=== PATIENT | female | born 1970 | race Caucasian/White ===

== ENCOUNTER → 2016-10-16 | Outpatient (CLI) | payer BC ==
[~2016-10-16] MED LIST: ASPI81TA28 PO; GLIP10TA9 PO; LISI10TA PO; METF1TAB53 PO
[2016-10-16 16:42] LABS: BLOOD UREA NITROGEN 13 mg/dl (7-18); BUN/CREATININE RATIO 14.4 (10-20); CALCIUM 8.8 mg/dl (8.5-10.1); CARBON DIOXIDE 27 mmol/L (21-32); CHLORIDE 108 mmol/L (98-107); GLUCOSE 223 mg/dl (70-99); POTASSIUM 4.1 mmol/L (3.5-5.1); SODIUM 141 mmol/L (136-145)
[2016-10-17 05:37] LABS: ESTIMATED AVERAGE GLUCOSE 174 mg/dl; HA1C FLAG Normal (Normal)
== END | disposition home or self-care (01) ==
LOC: C.LABBFT 13:38
PROVIDERS: ATTEND Internal Medicine
DX: Z00.00 Encounter for general adult medical examination without abnormal findings (principal); I10 Essential (primary) hypertension; E11.9 Type 2 diabetes mellitus without complications

== ENCOUNTER → 2017-03-02 | Outpatient (CLI) | payer BC ==
[2017-03-02 12:44] LABS: ESTIMATED AVERAGE GLUCOSE 160 mg/dl; HA1C FLAG Normal (Normal)
== END | disposition home or self-care (01) ==
LOC: C.LABBFT 08:13
PROVIDERS: ATTEND Internal Medicine
DX: E11.9 Type 2 diabetes mellitus without complications (principal)

== ENCOUNTER 2017-04-02 16:37 | Emergency (ER) | payer BC ==
[~2017-04-02] VITALS: Ht 165.1 cm; Wt 142.8 kg
[2017-04-02 16:40] VITALS: TEMP 36.7; Ht 165.1 cm; Wt 142.8 kg
[2017-04-02] MEDS ORDERED: LISI10TA PO (16:59)
[2017-04-02] MEDS ORDERED: ASPI81TA28 PO (16:59)
[2017-04-02] MEDS ORDERED: GLIP10TA9 PO (16:59)
[2017-04-02] MEDS ORDERED: METF1TAB53 PO (16:59)
--- NOTE | 2017-04-02 17:45 | DIAGNOSTIC IMAGING REPORT ---
RIGHT SHOULDER 3 VIEWS HISTORY: Right shoulder pain. RIGHT WITH Y VIEW, FALL ON R SHOULDER Right COMPARISON: None. FINDINGS: There is no fracture or dislocation. Soft tissues are unremarkable. No radiopaque foreign bodies. The right clavicle is intact. IMPRESSION: No fractures. Electronically signed by: Brennan Eaton M.D. 04/02/2017 5:43 PM Dictated Date/Time: 04/02/2017 5:42 PM
--- NOTE | 2017-04-02 18:01 | EMERGENCY ROOM VISIT NOTE ---
ED Visit Note First contact with patient: 16:49 CHIEF COMPLAINT: Right shoulder injury yesterday HISTORY OF PRESENT ILLNESS: Patient is a [id number] 46-year-old white female who presents to the emergency department for evaluation of right shoulder pain after a fall tomorrow. She slipped on wet grass and landed directly on the right shoulder. She noted pain immediately in the anterior aspect of the right shoulder that is worse with any attempt at shoulder movement. The pain radiates down her arm. She rates her pain a 9/10. She tried ice and ibuprofen. She denies any numbness or tingling. No prior history of right shoulder issues or chronic disease. No surgeries. REVIEW OF SYSTEMS: Review of systems as per HPI. All other systems reviewed were negative. At least 6 systems reviewed. PMH: Electronic medical records are reviewed and summarized as above/below. See Problem List. SOCIAL HISTORY: Patient lives at home with her . She is not employed. Nonsmoker. PHYSICAL EXAM: Vital Signs: Reviewed nurse's notes. CONSTITUTIONAL: Patient is an obese 38-year-old white female who is awake and alert and in mild distress due to her shoulder discomfort. MUSCULOSKELETAL: Examination of the right shoulder does not demonstrate any outward signs of,, no ecchymosis, abrasions or obvious deformity. There is no pain over the body of the clavicle, she does have some discomfort over the acromioclavicular joint, no pain over the spinous scapula. She has some discomfort over the proximal biceps tendon and rotator cuff insertion as well. Passive internal and external rotation of the shoulder are full. She has discomfort with passive forward flexion and abduction. The elbow, forearm, wrist and hand are nontender. The right upper extremity is neurovascularly intact. EMERGENCY DEPARTMENT COURSE: X-rays of the right shoulder were obtained. An negative for acute fracture or bony abnormality. The patient was fitted with an arm sling. Differential diagnoses entertained included proximal humerus fracture, shoulder dislocation, clavicle fracture, AC separation, soft tissue injury including capsule, labral or rotator cuff tear, among others. Patient does have some discomfort over the acromioclavicular joint, and I suspect she may have an element of an AC separation. Soft tissue injury however cannot be excluded. The patient was encouraged to use [id number] medications for discomfort and use the arm sling, she can follow-up with orthopedics if her symptoms are not improving. She is discharged home in good condition. Medication reconciliation: I attest that I have personally reviewed the patient' s current medication list. Blood pressure screening: Patient was found to have a slightly elevated blood pressure due to circumstances. The patient does have a history of hypertension and is treated and followed for this. RIGHT SHOULDER 3 VIEWS HISTORY: Right shoulder pain. RIGHT WITH Y VIEW, FALL ON R SHOULDER Right COMPARISON: None. FINDINGS: There is no fracture or dislocation. Soft tissues are unremarkable. No radiopaque foreign bodies. The right clavicle is intact. IMPRESSION: No fractures. Problem List Medical Problems: (1) Diab Verna Wo Compl, Type Ii Or Unspec Type, Not Uncntrld Status: Chronic (2) Hypertension Nos Status: Chronic Current/Historical Medications Scheduled Aspirin (Aspirin Ec), 81 MG PO DAILY Glipizide (Glucotrol), 20 MG PO QAM Lisinopril (Prinivil), 10 MG PO DAILY Metformin Hcl (Glucophage Ext Rel), 1,000 MG PO BID Allergies Coded Allergies: No Known Allergies (Unverified , 11/27/12) Vital Signs Date Time Temp Pulse Resp B/P (MAP) Pulse Ox O2 Delivery O2 Flow Rate FiO2 04/02/17 18:13 95 18 137/96 97 04/02/17 16:40 36.7 96 18 160/108 97 Room Air Departure Information Impression Primary Impression: Right shoulder injury Referrals Cheyanne Castillo M.D. (PCP) Patient Instructions My [facility] Additional Instructions Ibuprofen(Motrin, Advil) may be used for fever or pain. Use 600mg every six hours as needed. Take with food. Avoid using more than 2400mg in a 24 hour period. Do not use 2400mg per day for more than three consecutive days without physician direction. Prolonged inappropriate use can lead to stomach upset or ulcers. This medication can be taken if you need to drive, work, or perform activities which may be dangerous when taking narcotic pain medication. (AND/OR) Acetaminophen(Tylenol) may be used for fever or pain. Use 1000mg every six hours as needed. Avoid using more than 3000mg in a 24 hour period. This medication can be taken if you need to drive, work, or perform activities which may be dangerous when taking narcotic pain medication. Ice compresses for 20 minutes at a time four times daily for 2-3 days. Use the sling as instructed. Remove your arm from the sling 4-6 times a day and move all the joints around to keep them loose. Rest and elevate your injury. Continue current medications. Return to the ER immediately for any numbness, tingling, severe pain, extreme swelling in the extremity or as needed. Follow-up with your primary care physician or with orthopedic surgery if you do not feel that your symptoms are improving.
[2017-04-02 18:13] VITALS: BP 137/96; PULSE 95; O2SAT 97
== END 2017-04-02 18:13 | disposition home or self-care (01) ==
LOC: C.EDB 16:39 → C.EDD 18:13
DX: S49.91XA Unspecified injury of right shoulder and upper arm, initial encounter (principal); W19.XXXA Unspecified fall, initial encounter; E11.9 Type 2 diabetes mellitus without complications; I10 Essential (primary) hypertension; Z79.82 Long term (current) use of aspirin

== ENCOUNTER → 2017-04-09 | Outpatient (CLI) | payer BC ==
--- NOTE | 2017-04-09 11:33 | DIAGNOSTIC IMAGING REPORT ---
RIGHT ELBOW 3 VIEWS HISTORY: RIGHT ARM PAIN S/P FALL LAST WEDNESDAY Right COMPARISON: None. FINDINGS: There is no fracture or dislocation. Soft tissues are unremarkable. No radiopaque foreign bodies. No elbow effusion. IMPRESSION: No fractures. Electronically signed by: Brennan Eaton M.D. 04/09/2017 11:32 AM Dictated Date/Time: 04/09/2017 11:31 AM
--- NOTE | 2017-04-09 12:26 | DIAGNOSTIC IMAGING REPORT ---
RIGHT WRIST MIN 3 VIEWS ROUTINE CLINICAL HISTORY: Right arm pain status post fall. COMPARISON: None FINDINGS: No acute fracture is identified. Alignment of the right carpal bones is anatomic. Slight irregularity of the base of the ulnar styloid is likely chronic. There is minimal arthritis of the radiocarpal articulation. IMPRESSION: No acute fracture or dislocation of the right wrist. Electronically signed by: Shoaib Castillo M.D. 04/09/2017 12:25 PM Dictated Date/Time: 04/09/2017 12:21 PM
== END | disposition home or self-care (01) ==
LOC: C.RDSM 12:13
PROVIDERS: ATTEND Family Medicine
DX: M25.511 Pain in right shoulder (principal); M25.521 Pain in right elbow; M25.531 Pain in right wrist

== ENCOUNTER → 2017-09-10 | Outpatient (CLI) | payer BC ==
[2017-09-10 17:36] LABS: ALBUMIN 3.4 gm/dl (3.4-5.0); ALT/SGPT 25 U/L (12-78); AST/SGOT 15 U/L (15-37); BLOOD UREA NITROGEN 15 mg/dl (7-18); CALCIUM 8.6 mg/dl (8.5-10.1); CARBON DIOXIDE 24 mmol/L (21-32); CREATININE 0.81 mg/dl (0.60-1.20); GLUCOSE 168 mg/dl (70-99); POTASSIUM 3.7 mmol/L (3.5-5.1); SODIUM 137 mmol/L (136-145)
[2017-09-10 17:39] LABS: ALKALINE PHOSPHATASE 141 U/L (45-117)
[2017-09-11 08:17] LABS: HEMOGLOBIN A1C 8.2 % (4.5-5.6)
== END | disposition home or self-care (01) ==
LOC: C.LABBFT 15:24
PROVIDERS: ATTEND Internal Medicine
DX: Z00.00 Encounter for general adult medical examination without abnormal findings (principal); E11.9 Type 2 diabetes mellitus without complications; E78.5 Hyperlipidemia, unspecified; I10 Essential (primary) hypertension

== ENCOUNTER 2017-10-03 15:28 | Emergency (ER) | payer BC ==
[~2017-10-03] VITALS: Ht 165.1 cm; Wt 148.0 kg
[~2017-10-03 15:28] MED LIST changes: -GLIP10TA9 PO; -LISI10TA PO; -METF1TAB53 PO
[2017-10-03 15:35] VITALS: Ht 165.1 cm; Wt 148.0 kg
[2017-10-03] MEDS ORDERED: KETOROLAC TROMETHAMINE 30 MG/ML VIAL IV STA (16:05)
[2017-10-03] MEDS ORDERED: SODIUM CHLORIDE 0.9% 500ML 500 ML IV STA (16:05)
[2017-10-03] MEDS ORDERED: IBUP-1050 PO (16:08)
[2017-10-03 16:36] LABS: BASO % 0.5 %; BASO ABS # 0.05 K/uL (0-0.2); EOS % 3.6 %; EOS ABS # 0.34 K/uL (0-0.5); HEMATOCRIT 44.7 % (37-47); HEMOGLOBIN 14.6 g/dL (12.0-16.0); IG# 0.11 K/uL (0.00-0.02); LYMPH % 24.8 %; LYMPH ABS # 2.36 K/uL (1.2-3.4); MEAN CELL VOLUME 87.3 fL (80-100); MEAN CORPUSCULAR HEMOGLOBIN 28.5 pg (25-34); MEAN CORPUSCULAR HGB CONC 32.7 g/dl (32-36); MEAN PLATELET VOLUME 9.1 fL (7.4-10.4); MONO % 5.4 %; MONO ABS # 0.51 K/uL (0.11-0.59); NEUT % 64.5 %; NEUT ABS # 6.14 K/uL (1.4-6.5); PLATELET COUNT 358 K/uL (130-400); RED CELL DISTRIBUTION WIDTH CV 12.7 % (11.5-14.5); RED CELL DISTRIBUTION WIDTH SD 40.8 fL (36.4-46.3); WHITE BLOOD COUNT 9.51 K/uL (4.8-10.8)
--- NOTE | 2017-10-03 16:47 | DIAGNOSTIC IMAGING REPORT ---
CT HEAD WITHOUT CONTRAST (CT) CLINICAL HISTORY: Severe headache COMPARISON STUDY: No previous studies for comparison. TECHNIQUE: Axial CT of the brain is performed from the vertex to the skull base. IV contrast was not administered for this examination. A dose lowering technique was utilized adhering to the principles of ALARA. CT DOSE: 580.48 mGy.cm FINDINGS: No intra or extra-axial mass lesions are visualized. There is no CT evidence of acute cortical infarction. There is no evidence of midline shift. There is no acute hemorrhage. No calvarial fractures are visualized. There is no evidence of pathologic ventricular dilatation. There is no evidence of acute sinusitis .Diminished aeration of the left mastoid may be developmental. IMPRESSION: No acute intracranial findings Electronically signed by: Cain Nj M.D. 10/03/2017 4:46 PM Dictated Date/Time: 10/03/2017 4:45 PM
[2017-10-03 16:52] LABS: CALCIUM 8.7 mg/dl (8.5-10.1)
[2017-10-03] MEDS ORDERED: LISI10TA PO (16:59)
[2017-10-03] MEDS ORDERED: GLIP10TA9 PO (16:59)
[2017-10-03] MEDS ORDERED: METF1TAB53 PO (16:59)
[2017-10-03 17:32] VITALS: BP 148/89; PULSE 76; TEMP 37; O2SAT 97
--- NOTE | 2017-10-03 21:20 | EMERGENCY ROOM VISIT NOTE ---
History Report prepared by Regis: Rocael Coon Under the Supervision of: Dr. Dirk Avelar D.O. First contact with patient: 15:54 Chief Complaint: HEADACHE Stated Complaint: SHARP HEADACHE History of Present Illness The patient is a 47 year old female who presents to the Emergency Room with complaints of intermittent sharp head pain since 1400 this afternoon. She currently rates her pain a 7/10 in severity. She notes the pain is sharp and starts in the front of the head and migrates to the back. She states the pain last for a few minutes and then goes away. She has had similar symptoms in the past and reports that she gets these symptoms once a year for the last 15 years. Per , the patient passed out today for a few minutes. She denies any history of brain aneurysms or brain bleeds. 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 She has a history of diabetes and HTN. She notes a history of syncope when her blood sugar is too low. She notes her blood sugar was 151 today. She does not know what her blood sugar was after she passed out. She denies any changes in speech. Patient denies any history of sudden at a young age. Pt denies change in vision, fevers, chest pain, shortness of breath, nausea, vomiting, diarrhea, or pain with urination. Source of History: patient Onset: since 1400 this afternoon Position: head Symptom Intensity: 7/10 Quality: sharp Timing: intermittent Associated Symptoms: No fevers, No chest pain, No SOB, No nausea, No vomiting, No diarrhea, No urinary symptoms (no pain with urination) Note: She notes passing out. She denies any changes to her speech or changes in vision. Review of Systems See HPI for pertinent positives & negatives. A total of 10 systems reviewed and were otherwise negative. Past Medical & Surgical Medical Problems: (1) Diab Verna Wo Compl, Type Ii Or Unspec Type, Not Uncntrld (2) Diabetes (3) HTN (hypertension) (4) Hypertension Nos Family History Diabetes mellitus Heart disease Hypertension Social History Smoking Status: Never Smoker Alcohol Use: none Drug Use: none Marital Status: Housing Status: lives with significant other Occupation Status: unemployed Current/Historical Medications Scheduled Glipizide (Glucotrol), 20 MG PO QAM Lisinopril (Prinivil), 10 MG PO DAILY Metformin Hcl (Glucophage Ext Rel), 1,000 MG PO BID Scheduled PRN Ibuprofen (Advil), 400 MG PO Q6H PRN for Headache or Pain Allergies Coded Allergies: No Known Allergies (Unverified , 11/27/12) Physical Exam Vital Signs Date Time Temp Pulse Resp B/P (MAP) Pulse Ox O2 Delivery O2 Flow Rate FiO2 10/03/17 17:32 37.0 76 18 148/89 97 10/03/17 15:35 37.0 83 20 179/121 97 Room Air Physical Exam GENERAL: Sitting up in bed, alert, well appearing, well nourished, no distress, non-toxic EYE EXAM: normal conjunctiva. PERRL and EOM's intact with a slight disconjugate gaze. OROPHARYNX: no exudate, no erythema, lips, buccal mucosa, and tongue normal and mucous membranes are moist NECK: supple, no nuchal rigidity, no adenopathy, non-tender LUNGS: Clear to auscultation. Normal chest wall mechanics HEART: no murmurs, S1 normal and S2 normal ABDOMEN: abdomen soft, non-tender, normo-active bowel sounds, no masses, no rebound or guarding. BACK: Back is symmetrical on inspection and there is no deformity, no midline tenderness, no CVA tenderness. SKIN: no rashes and no bruising UPPER EXTREMITIES: upper extremities are grossly normal. LOWER EXTREMITIES: No pitting edema. NEURO EXAM: Normal sensorium, cranial nerves II-XII intact, normal speech, no weakness of arms, no weakness of legs. No drift. Finger to nose intact. Gross sensation intact. Medical Decision & Procedures ER Provider Diagnostic Interpretation: Radiology results as stated below per my review and the radiologist's interpretation: CT HEAD WITHOUT CONTRAST (CT) CLINICAL HISTORY: Severe headache COMPARISON STUDY: No previous studies for comparison. TECHNIQUE: Axial CT of the brain is performed from the vertex to the skull base. IV contrast was not administered for this examination. A dose lowering technique was utilized adhering to the principles of ALARA. CT DOSE: 580.48 mGy.cm FINDINGS: No intra or extra-axial mass lesions are visualized. There is no CT evidence of acute cortical infarction. There is no evidence of midline shift. There is no acute hemorrhage. No calvarial fractures are visualized. There is no evidence of pathologic ventricular dilatation. There is no evidence of acute sinusitis .Diminished aeration of the left mastoid may be developmental. IMPRESSION: No acute intracranial findings Electronically signed by: Cain Nj M.D. 10/03/2017 4:46 PM Dictated Date/Time: 10/03/2017 4:45 PM Laboratory Results 10/03/17 16:15 Red Blood Count 5.12, Mean Corpuscular Volume 87.3, Mean Corpuscular Hemoglobin 28.5, Mean Corpuscular Hemoglobin Concent 32.7, Mean Platelet Volume 9.1, Neutrophils (%) (Auto) 64.5, Lymphocytes (%) (Auto) 24.8, Monocytes (%) (Auto) 5.4, Eosinophils (%) (Auto) 3.6, Basophils (%) (Auto) 0.5, Neutrophils # (Auto) 6.14, Lymphocytes # (Auto) 2.36, Monocytes # (Auto) 0.51, Eosinophils # (Auto) 0.34, Basophils # (Auto) 0.05 10/03/17 16:15 Test 10/03/17 16:15 White Blood Count 9.51 K/uL (4.8-10.8) Red Blood Count 5.12 M/uL (4.2-5.4) Hemoglobin 14.6 g/dL (12.0-16.0) Hematocrit 44.7 % (37-47) Mean Corpuscular Volume 87.3 fL (80-100) Mean Corpuscular Hemoglobin 28.5 pg (25-34) Mean Corpuscular Hemoglobin Concent 32.7 g/dl (32-36) Platelet Count 358 K/uL (130-400) Mean Platelet Volume 9.1 fL (7.4-10.4) Neutrophils (%) (Auto) 64.5 % Lymphocytes (%) (Auto) 24.8 % Monocytes (%) (Auto) 5.4 % Eosinophils (%) (Auto) 3.6 % Basophils (%) (Auto) 0.5 % Neutrophils # (Auto) 6.14 K/uL (1.4-6.5) Lymphocytes # (Auto) 2.36 K/uL (1.2-3.4) Monocytes # (Auto) 0.51 K/uL (0.11-0.59) Eosinophils # (Auto) 0.34 K/uL (0-0.5) Basophils # (Auto) 0.05 K/uL (0-0.2) RDW Standard Deviation 40.8 fL (36.4-46.3) RDW Coefficient of Variation 12.7 % (11.5-14.5) Immature Granulocyte % (Auto) 1.2 % Immature Granulocyte # (Auto) 0.11 K/uL (0.00-0.02) Anion Gap 9.0 mmol/L (3-11) Est Creatinine Clear Calc Drug Dose 100.3 ml/min Estimated GFR () 76.6 Estimated GFR (Non- 66.1 BUN/Creatinine Ratio 14.4 (10-20) Calcium Level 8.7 mg/dl (8.5-10.1) Laboratory results per my review. Medications Administered Medications (Trade) Dose Ordered Sig/Neal Route Start Time Stop Time Status Last Admin Dose Admin Ketorolac Tromethamine (Toradol Inj) 30 mg NOW STAT IV 10/03/17 16:05 10/03/17 16:07 DC 10/03/17 16:16 30 MG Sodium Chloride 500 ml @ 999 mls/hr Q31M STAT IV 10/03/17 16:05 10/03/17 16:35 DC 10/03/17 16:16 999 MLS/HR ED Course ED COURSE: Vital signs were reviewed and showed hypertensive. The patients medical record was reviewed The above diagnostic studies were performed and reviewed. ED treatments and interventions as stated above. 1557: The patient was evaluated in room A3. A complete history and physical examination was performed. 1605: Ordered Sodium Chloride 500 ml @ 999 mls/hr IV and Toradol 30 mg IV 1713: Upon reevaluation, the patient is feeling better. I discussed my findings with the patient and she understands and agrees with the treatment plan. Based on the patients age, coexisting illnesses, exam and lab findings the decision to treat as an outpatient was made. The patient remained stable while under my care. The patient appeared well at the time of discharge. Medical Decision Differential Diagnosis includes but is not limited to headache, tension headache , cluster headache, migraine, subarachnoid hemorrhage, meningitis, mass, central venous thrombus, concussion, trauma and epidural/subdural hemorrhage. Patient is a 47-year-old female who presents to ER with a severe frontal headache radiating through to her back. Pain has been coming and going intermittently. Started around 2 PM. Did gradually get worse. She currently notes that her headache has almost completely resolved. She completed neurologically intact. Has a disconjugate gaze but this is old. Completely neurologically intact. CBC along with BMP was unremarkable. CT head was negative. She was given a small dose of Toradol and had complete resolution of symptoms. She was sinus rhythm on the monitor. With the negative CT head and the unremarkable workup with a completely intact neurologic exam patient was discharged to follow-up with PCP as an outpatient. Discussed with Pt concerning signs and symptoms to watch out for. Pt was instructed to follow up with their PCP and discussed with the patient their option to return to the ED at anytime for persistent or worsening symptoms. The appropriate anticipatory guidance and out-patient management, including indications for return to the emergency department, were explained at length to the patient and understood. Medication Reconcilliation Current Medication List: was personally reviewed by me Blood Pressure Screening Patient's blood pressure: Elevated blood pressure Blood pressure disposition: Elevated BP felt to be situational Impression Primary Impression: Cephalgia Scribe Attestation The scribe's documentation has been prepared under my direction and personally reviewed by me in its entirety. I confirm that the note above accurately reflects all work, treatment, procedures, and medical decision making performed by me. Departure Information Dispostion Home / Self-Care Referrals No Doctor, Assigned (PCP) Forms HOME CARE DOCUMENTATION FORM, IMPORTANT VISIT INFORMATION Patient Instructions Headache Pain, My [facility] Additional Instructions Please follow up with your primary care doctor with in the next 24 hours. Any worsening of your symptoms, please return to the ED immediately. This includes any fevers greater than 100.4, worsening pain, chest pain, shortness breath, persistent nausea, vomiting, unable to eat or drink, or any other concerning signs or symptoms from your standpoint. You were given medications during this visit that will inhibit your ability to drive, operate machinery and work. Please do NOT drive, operate machinery, drink alcohol or work for the next 12hrs. Problem Qualifiers Primary Impression: Cephalgia Headache type: unspecified Headache chronicity pattern: acute headache Intractability: not intractable Qualified Codes: R51 - Headache
== END 2017-10-03 17:33 | disposition home or self-care (01) ==
LOC: C.EDB 15:29 → C.EDA 17:33
DX: R51 Headache (principal); E11.9 Type 2 diabetes mellitus without complications; I10 Essential (primary) hypertension; Z79.84 Long term (current) use of oral hypoglycemic drugs; Z83.3 Family history of diabetes mellitus; Z82.49 Family history of ischemic heart disease and other diseases of the circulatory system

== ENCOUNTER → 2017-11-05 | Day surgery (SDC) | payer BC ==
[2017-10-19 14:33] VITALS: Ht 165.1 cm; Wt 147.3 kg
[~2017-11-05] VITALS: Ht 165.1 cm; Wt 147.3 kg
[~2017-11-05] MED LIST changes: -ASPI81TA28 PO; +GLIP10TA9 PO; +LIDOCAINE HCL 2% 2 ML VIAL (20MG/ML) ONE; +LISI10TA PO; +METF1TAB53 PO; +MIDAZOLAM HCL 1 MG/ML 2ML VIAL ONE; +ONDANSETRON INJ 2 MG/ML 2 ML VIAL ONE; +PROPOFOL IV EMULSION 10 MG/ML 20 ML VIAL IV ONE
--- NOTE | 2017-11-05 09:21 | Endo History and Physical ---
History & Physical Date of Service: Nov 05, 2017. Chief Complaint: Screening Referring Physician: Cheyanne Castillo History of Present Illness 47 yo CF who presents for screening colonoscopy. Past Surgical History Hx Cardiac Surgery: No Hx Internal Defibrillator: No Hx Pacemaker: No Hx Abdominal Surgery: No Hx of Implantable Prosthesis: No Hx Post-Op Nausea and Vomiting: No Hx Cancer Surgery: No Hx Thoracic Surgery: No Hx Orthopedic: No Hx Urinary Tract Surgery: No Family History None Social History Smoking Status: Never Smoker Hx Substance Use: No Hx Alcohol Use: No Allergies Coded Allergies: Adhesives (Verified Allergy, Unknown, SKIN REACTION, 10/19/17) NO KNOWN DRUG ALLERGIES (Verified Allergy, Unknown, ., 10/19/17) Current Medications Reported Home Medications Medications Dose Route/Sig Max Daily Dose Days Date Category Glucophage Ext Rel (Metformin Hcl) 1,000 Mg Tab 1,000 Mg PO BID 04/02/17 Reported Glucotrol (Glipizide) 10 Mg Tab 20 Mg PO QAM 04/02/17 Reported Prinivil (Lisinopril) 10 Mg Tab 10 Mg PO QAM 04/02/17 Reported Vital Signs Weight (Kilograms): 147.27 Height (Feet): 5 Height (Inches): 5 Physical Exam General Appearance: WD/WN, no apparent distress Respiratory/Chest: Auscultation: breath sounds normal Cardiovascular: Heart Auscultation: RRR Abdomen: Bowel Sounds: normal Inspection & Palpation: soft, non-distended, no tenderness, guarding & rebound Assessment and Plan Assessment: 47 yo CF who presents for screening colonoscopy. Plan: Proceed with colonoscopy.
--- NOTE | 2017-11-05 11:07 | Discharge Instructions ---
Endoscopy Patient Instructions Date / Procedure(s) Performed Nov 05, 2017. Colonoscopy, EGD Allergy Information Coded Allergies: Adhesives (Verified Allergy, Unknown, SKIN REACTION, 11/05/17) NO KNOWN DRUG ALLERGIES (Verified Allergy, Unknown, ., 11/05/17) Discharge Date / Findings Nov 05, 2017. Ulcerative colitis s/p biopsies Colon polyps Rectal polyps Internal hemorrhoids Medication Instructions OK to resume all medications today as prescribed Reported Home Medications Medications Dose Route/Sig Max Daily Dose Days Date Category Glucophage Ext Rel (Metformin Hcl) 1,000 Mg Tab 1,000 Mg PO BID 04/02/17 Reported Glucotrol (Glipizide) 10 Mg Tab 20 Mg PO QAM 04/02/17 Reported Prinivil (Lisinopril) 10 Mg Tab 10 Mg PO QAM 04/02/17 Reported Provider Instructions Activity Restrictions - No exercising or heavy lifting for 24 hours. - Do not drink alcohol the day of the procedure. - Do not drive a car or operate machinery until the day after the procedure. - Do not make any important decisions or sign important papers in 24 hours after the procedure. Following Day: - Return to full activity which may include returning to work/school. Diet Start your diet with liquids and light foods (jello, soup, juice, toast). Then eat your usual diet if not nauseated. Treatment For Common After Affects For mild abdominal pain, bloating, or excessive gas: - Rest - Eat lightly - Lie on right side Follow-Up Information Follow-up with Dr. Castillo as scheduled Anesthesia Information What You Should Know You have had a procedure that required some medicine to reduce anxiety and discomfort. This treatment is called moderate sedation. After receiving the treatment, you may be sleepy, but you will be able to breathe on your own. The effects of the treatment may last for several hours. Follow these instructions along with Activity/Diet recommendations noted above: * Do NOT do anything where dizziness or clumsiness would be dangerous. * Rest quietly at home today, then you can be up and about tomorrow. * Have a responsible person stay with you the rest of today. * You may have had an I.V. today. If so, you may take the dressing off later today. Recommendations Call your doctor if: * Trouble breathing * Continuous vomiting for more than 24 hours * Temperature above 101 degrees * Severe abdominal pain or bloating * Pain not relieved by pain medicine ordered * There is increased drainage or redness from any incision * A large amount of rectal bleeding greater than 2-3 tablespoons. (If you had a polyp/s removed or have hemorrhoids, a small amount of blood - from the rectum is to be expected.) * You have any unanswered questions or concerns. IN THE EVENT OF A SERIOUS EMERGENCY, GO TO THE NEAREST EMERGENCY ROOM Your discharge instructions were prepared by provider Marcus Cadet. Patient Instructions Signature Page Dona Gatica Patient (or Guardian) Signature/Date: I have read and understand the instructions given to me by my caregivers. Caregiver/RN/Doctor Signature/Date: The above-named patient and/or guardian has received patient instructions on this date. + Original Patient Signature Page (only) stays with chart. Please make copy for patient.
--- NOTE | 2017-11-05 11:15 | GI REPORT ---
Procedure Date: 11/05/2017 10:00 AM Procedure: Colonoscopy Indications: Screening for colorectal malignant neoplasm, Questionable history of Ulcerative colitis Medicines: Monitored Anesthesia Care Complications: No immediate complications. Estimated Blood Loss: Estimated blood loss: none. Procedure: Pre-Anesthesia Assessment: - Prior to the procedure, a History and Physical was performed, and patient medications and allergies were reviewed. The patient's tolerance of previous anesthesia was also reviewed. The risks and benefits of the procedure and the sedation options and risks were discussed with the patient. All questions were answered, and informed consent was obtained. Prior Anticoagulants: The patient has taken no previous anticoagulant or antiplatelet agents. ASA Grade Assessment: III - A patient with severe systemic disease. After reviewing the risks and benefits, the patient was deemed in satisfactory condition to undergo the procedure. After I obtained informed consent, the scope was passed under direct vision. Throughout the procedure, the patient's blood pressure, pulse, and oxygen saturations were monitored continuously. The scope was introduced through the anus and advanced to the terminal ileum. The colonoscopy was performed without difficulty. The patient tolerated the procedure well. The quality of the bowel preparation was good. The terminal ileum, ileocecal valve, appendiceal orifice, and rectum were photographed. Findings: The perianal and digital rectal examinations were normal. Two sessile polyps were found in the ascending colon. The polyps were 5 to 8 mm in size. These polyps were removed with a hot snare. Resection and retrieval were complete. Two sessile polyps were found in the rectum. The polyps were 5 to 6 mm in size. These polyps were removed with a hot snare. Resection and retrieval were complete. To prevent bleeding after the polypectomy, two hemostatic clips were successfully placed (MR conditional). There was no bleeding at the end of the procedure. A diffuse area of moderately altered vascular and erythematous mucosa was found in the entire colon. Biopsies were taken with a cold forceps for histology. Non-bleeding internal hemorrhoids were found during retroflexion. The hemorrhoids were small. Impression: - Two 5 to 8 mm polyps in the ascending colon, removed with a hot snare. Resected and retrieved. - Two 5 to 6 mm polyps in the rectum, removed with a hot snare. Resected and retrieved. Clips (MR conditional) were placed. - Altered vascular and erythematous mucosa in the entire examined colon. Biopsied. - Non-bleeding internal hemorrhoids. Recommendation: - Resume previous diet. - Continue present medications. - Repeat colonoscopy for surveillance based on pathology results. - Return to primary care physician as previously scheduled. Marcus Cadet, DO 11/05/2017 11:15:11 AM This report has been signed electronically. Note Initiated On: 11/05/2017 10:00 AM I attest to the content of the Intraoperative Record and orders documented therein, exceptions below
[2017-11-05 11:40] VITALS: BP 156/100; PULSE 55; O2SAT 100
--- NOTE | 2017-11-05 12:15 | Anesthesiology Progress Note ---
Anesthesia Post Op Note Date & Time Nov 05, 2017 at 12:15 Vital Signs Pain Intensity: 0 Vital Signs Past 12 Hours Date Time Temp Pulse Resp B/P (MAP) Pulse Ox O2 Delivery O2 Flow Rate FiO2 11/05/17 11:40 55 18 156/100 (118) 100 Room Air 11/05/17 11:20 69 18 136/97 (110) 100 Room Air 11/05/17 11:05 72 18 106/81 (89) 96 Room Air 11/05/17 09:32 36.7 75 18 165/96 (119) 96 Room Air Notes Mental Status: alert / awake / arousable, participated in evaluation Pt Amnestic to Procedure: Yes Nausea / Vomiting: adequately controlled Pain: adequately controlled Airway Patency, RR, SpO2: stable & adequate BP & HR: stable & adequate Hydration State: stable & adequate Anesthetic Complications: no major complications apparent
== END | disposition home or self-care (01) ==
LOC: C.GI 08:31
PROVIDERS: ATTEND Internal Medicine
DX: Z12.11 Encounter for screening for malignant neoplasm of colon (principal); D12.2 Benign neoplasm of ascending colon; K62.1 Rectal polyp; K64.8 Other hemorrhoids; Z91.048 Other nonmedicinal substance allergy status; Z90.89 Acquired absence of other organs; K21.9 Gastro-esophageal reflux disease without esophagitis; E11.9 Type 2 diabetes mellitus without complications; E66.01 Morbid (severe) obesity due to excess calories; Z79.84 Long term (current) use of oral hypoglycemic drugs

== ENCOUNTER 2019-07-13 16:28 | Inpatient (IN) ==
[2019-07-13] MEDS ORDERED: LIDO/EPINEPHRINE/SOD BICARB 20 ML VIAL INFIL ONE (16:57)
[2019-07-13] MEDS ORDERED: SODIUM CHLORIDE 0.9% 1000ML 1,000 ML IV SCH (17:00)
--- NOTE | 2019-07-13 17:17 | Emergency Department Note ---
ED Provider Note CHIEF COMPLAINT: Lump/swelling on left side of head HISTORY OF PRESENTING ILLNESS: This is a 48-year-old female with past medical history significant for type 2 diabetes, hypertension, and ulcerative colitis on [facility], who presents to the emergency department by private vehicle with complaint of a lump and swelling on the left side of her face for the past 5 days. Patient states a week ago that she got to vaccinations, hepatitis B and pneumonia vaccines. She states this was the first time she had gotten the pneumonia vaccine. She states the next day that her face swelled up and was itchy, she states she called her doctor and they told her to take Benadryl, which she did and this helped with the swelling. She states the following day that she started to notice some pain and swelling on the left side of her head, and then the pain went away and it became itchy. She has been having some drainage from the area of swelling since yesterday that she describes as yellow and having a bad smell. She states that she went to an urgent care today and they sent her here for further evaluation. She denies any fevers or chills. She denies any headache, neck pain or stiffness, problems with hearing or vision, sore throat, difficulty swallowing, chest pain, shortness of breath, abdominal pain, nausea or vomiting, urinary symptoms, or unusual rash. She states she has been feeling a little more tired than usual, but otherwise has b een feeling her usual self. REVIEW OF SYSTEMS: A complete 10 point review of systems was reviewed with the patient with pertinent positives and negatives as per history of present illness. All else were negative. PAST MEDICAL HISTORY: Hypertension, hyperlipidemia, type 2 diabetes, migraine headaches, ulcerative colitis SOCIAL HISTORY: Lives at home with family, she denies tobacco use ALLERGIES: No known drug allergies PHYSICAL EXAM: CONSTITUTIONAL: Pleasant and cooperative. Nontoxic-appearing and in no acute distress. Mildly dehydrated, but otherwise well appearing and well nourished. HEENT: Atraumatic. There is a large area of induration and erythema in the left temporal region and extending down the left side of the face and jaw, warm to the touch. Fluctuant at the center with some pointing and a moderate amount of yellow purulent drainage noted. The area is mildly tender to palpation. PERRL, EOMI with no nystagmus. TMs normal bilaterally, no tenderness or redness of the mastoid region. Pharynx normal. Tacky mucous membranes. Airway patent. No submandibular swelling or adenopathy. No edema of the mouth floor. NECK: Supple, full active range of motion without discomfort. No cervical adenopathy. No nuchal rigidity or meningismus. RESPIRATORY: Clear to auscultation bilaterally with no wheezing, crackles, rhonchi or stridor. Equal expansion bilaterally. CARDIOVASCULAR: Regular rate and rhythm with no murmurs, rubs or gallops. Normal peripheral perfusion. No edema. GASTROINTESTINAL: Soft, nontender, nondistended, obese abdomen. Bowel sounds present in all quadrants. MUSCULOSKELETAL: Full range of motion of all joints without discomfort. INTEGUMENTARY: No rash or other significant dermatologic conditions noted. NEUROLOGIC: Alert and oriented X 4 with normal affect. Cranial nerves II-XII grossly intact. No focal neurologic deficits noted. Normal strength and sensation in all 4 extremities. Normal speech. Normal gait observed. ED COURSE AND MEDICAL DECISION MAKING: CC: Patient presenting with complaint of lump/swelling on left side of head DIFFERENTIAL DIAGNOSIS: Includes, but not limited to abscess, cellulitis, MRSA infection, sepsis/bacteremia, meningitis, among others. INTERPRETATION OF LABS: No leukocytosis, no anemia, normal platelets, hyperglycemia, no other significant electrolyte abnormalities, normal renal function, normal liver enzymes. Beta hydroxybutyric acid mildly elevated. Lactate within normal limits. IMAGING: CT head/brain wo/w con CLINICAL HISTORY: 48 years-old Female presenting with left temporal abscess /cellulitis. TECHNIQUE: Multidetector CT imaging of the head was performed before and after the administration of intravenous contrast. IV contrast: 94 mL of Optiray 320. One or more dose lowering techniques were used consistent with the principles of ALARA (as low as reasonably achievable), including automatic exposure control, mA or kV adjustment to individual patient size, and/or use of iterative reconstruction. COMPARISON: 10/03/2017. CT DOSE (mGy.cm): The estimated cumulative dose is 1074.96 mGy.cm. FINDINGS: Computer Systems Hardware Analyst topogram: Unremarkable. Ventricles and sulci normal in size. No hemorrhage. Brain parenchyma normal in appearance with preserved glasgow-white differentiation. No acute territorial infarct. No mass effect or midline shift. No extra-axial fluid collection. Paranasal sinuses and mastoid air cells clear. Calvarium intact. Swelling of the left temporalis muscle with overlying infiltration and fluid density. There is partial rim enhancement though no well-defined fluid collection. Extensive regional skin thickening and subcutaneous fat infiltration. Enlarged reactive left intraparotid lymph nodes. IMPRESSION: 1. No acute intracranial pathology. No abnormal intracranial enhancement. 2. Phlegmonous changes along the left temporalis muscle with extensive surrounding cellulitis. No subjacent osseous or intracranial changes. No drainable abscess at this time. This could likely be followed with ultrasound. MEDICATION RECONCILIATION: I attest that I have personally reviewed the patient's current medication list. INITIAL VITAL SIGNS REVIEW: I reviewed the patient's initial vital signs and interpret them as follows: T: Afebrile; BP: Hypertensive; HR: Tachycardic; RR: Within normal limits; Pulse Ox: Within normal limits on room air. Blood pressure screening: The patient was found to have an elevated blood pressure and was referred to the inpatient team for further management. MDM SUMMARY: Patient was evaluated at bedside, history and physical exam performed. Patient is alert and oriented, in no acute distress, resting calmly in the stretcher. She is neurologically intact with no focal deficits. She is afebrile and nontoxic-appearing, though she is noted to be mildly tachycardic and appears mildly dehydrated on exam. There is a large area of induration and erythema in the left temporal aspect of the scalp with central fluctuance and purulent discharge. Appears concerning for abscess with significant scalp/facial cellulitis. Orders were placed at bedside for labs, lactate and blood cultures x2 for infection work-up, IV fluid bolus for hydration. I discussed the patient with Dr. Robledo, regarding imaging studies, we did order a CT of the head/brain to evaluate for extent of the abscess/cellulitis. Labs and imaging reviewed as above, no leukocytosis and lactate is within normal limits. Significantly hyperglycemic, which the patient reports is unusual for her and notes her blood glucose levels are normally in the 140s-150s at home. No evidence of DKA on labs. CT imaging of the head shows extensive cellulitis of the left temporal region of the scalp, no clear drainable abscess noted on CT. I did manually express a significant amount of purulent material from the patient's scalp wound, a surface wound culture was sent from this fluid. Given the extent of the cellulitis, the patient's history of diabetes with significantly elevated blood glucose as well as her immunocompromised state on the Humira, I did feel that she would benefit from hospital admission for IV antibiotics. Patient was again discussed with Dr. Robledo, who agrees with my assessment, plan, and disposition. I discussed with the ED pharmacist, who recommended coverage with Unasyn, as well as daptomycin for MRSA coverage. I do not strongly suspect pseudomonal infection at this time, and a wound culture is pending. Patient reassessed multiple times throughout ED stay, she has remained hemodynamically stable and afebrile, and her pain is well controlled. I discussed the recommendation for admission and IV antibiotics with the patient and her , they verbalized understanding and were agreeable to this plan. I spoke with Dr. Mariee, [facility] Hospitalist, who agrees to evaluate the patient for admission. The patient was stable at time of admission. The chart was completed utilizing [email or web address] Speech voice recognition software. Grammatical errors, random word insertions, pronoun errors, and incomplete sentences are an occasional consequence of this system due to software limitations, ambient noise, and hardware issues. Any formal questions or concerns about the content, text, or information contained within the body of this dictation should be directly addressed to the nurse practitioner for clarification. Impression & Plan Cellulitis of face, Diabetes mellitus, type 2 Past Med/Surg History Medical History (Updated 07/14/19 @ 00:02 by LOW Whitten) Diabetes mellitus, type 2 (Chronic) Diabetic peripheral neuropathy (Chronic) HTN (hypertension) (Chronic) Hyperlipidemia (Chronic) Migraine (Chronic) Morbid obesity (Chronic) Osteoarthritis (Chronic) Tubular adenoma of colon (Resolved) Ulcerative colitis (Chronic) Surgical History (Updated 05/24/19 @ 16:20 by Cheyanne Castillo MD) History of colonoscopy S/P tonsillectomy Family History (Updated 07/13/19 @ 16:14 by Brigid Villa) Other Family history not known due to adoption Social History (Updated 07/13/19 @ 16:15 by Brigid Villa) Preferred Language: Maltese Communication Ability: Effective Visual Impairment: No Limitations Hearing Ability: Normal Heat Seal Operator Required: No Beliefs That Will Affect Care: None marital status: Current Living Situation: Spouse current occupational status: unemployed Other Information That Helps Us Care for You: No Feels Safe at Home: Yes Safety Concerns: Feels Safe At This Time Smoking Status: Never smoker Do You Dip or Chew Tobacco: No ; Second Hand Exposure: No ; Tobacco Cessation Education Requested by Patient: No Hx Alcohol Use: No Hx Substance Use: No Childhood Exposure to Second-Hand Smoke: Yes Dental Care, Regularly: Yes Physical Activity Frequency: Does not Exercise Results & Data Vital Signs Vital Signs - 24 hr 07/13/19 16:36 07/13/19 17:21 07/13/19 18:46 Temperature 36.5 C Temperature Source Oral Pulse Rate 112 H Pulse Rate [Right Finger] 100 H 94 H Respiratory Rate 20 20 22 Respiratory Effort / Characteristics Non-Labored Spontaneous Non-Labored Spontaneous Non-Labored Spontaneous Respiratory Depth Normal Normal Normal Respiratory Pattern Regular Regular Regular Blood Pressure 154/112 H Blood Pressure [Right Arm] 163/111 H 155/98 H Blood Pressure Mean 126 Blood Pressure Mean [Right Arm] 128 117 Blood Pressure Position Sitting Pulse Oximetry 96 95 99 Oxygen Delivery Method Room Air Room Air Room Air Sepsis Recent Fever Within 48 Hours No Sepsis New/Unexplained Change in Mental Status No Sepsis Action Taken by Nursing No Action Required Laboratory Data Result diagrams: 07/13/19 17:13 07/13/19 17:13 Lab Results 07/13/19 07/13/19 07/13/19 Range/Units 17:13 17:13 17:13 WBC 10.62 (4.8-10.8) K/uL RBC 4.71 (4.2-5.4) M/uL Hgb 13.8 (12.0-16.0) g/dL Hct 40.6 (37-47) % MCV 86.2 (80-100) fL MCH 29.3 (25-34) pg MCHC 34.0 (32-36) g/dL RDW Std Deviation 42.0 (36.4-46.3) fL RDW Coeff of Christiano 13.4 (11.5-14.5) % Plt Count 360 (130-400) K/uL MPV 9.2 (7.4-10.4) fL Immature Gran % (Auto) 1.5 % Neut % (Auto) 56.2 % Lymph % (Auto) 25.7 % Mason % (Auto) 9.0 % Eos % (Auto) 5.9 % Baso % (Auto) 1.7 % Immature Gran # (Auto) 0.16 H (0.00-0.02) K/uL Neut # (Auto) 5.96 (1.4-6.5) K/uL Lymph # (Auto) 2.73 (1.2-3.4) K/uL Mason # (Auto) 0.96 H (0.11-0.59) K/uL Eos # (Auto) 0.63 H (0-0.5) K/uL Baso # (Auto) 0.18 (0-0.2) K/uL Sodium 135 L (136-145) mmol/L Potassium 3.8 (3.5-5.1) mmol/L Chloride 105 (98-107) mmol/L Carbon Dioxide 24 (21-32) mmol/L Anion Gap 6.0 (3-11) BUN 15 (7-18) mg/dl Creatinine 1.14 (0.6-1.2) mg/dl Est Cr Clr Drug Dosing 85.2 ml/min Est GFR ( Amer) 64.9 Est GFR (Non-Af Amer) 56.0 BUN/Creatinine Ratio 13.3 (10-20) Glucose 360 H* (70-99) mg/dl Lactate 1.7 (0.4-2.0) mmol/L Calcium 8.7 (8.5-10.1) mg/dl Total Bilirubin 0.6 (0.2-1) mg/dl AST 20 (15-37) U/L ALT 21 (12-78) U/L Alkaline Phosphatase 169 H (45-117) U/L Total Protein 8.5 H (6.4-8.2) gm/dl Albumin 3.0 L (3.4-5.0) gm/dl Globulin 5.5 H (2.5-4.0) gm/dl Albumin/Globulin Ratio 0.5 L (0.9-2) Beta-Hydroxybutyric Acd 3.84 H (0.2-2.81) mg/dl Administered Medications Insulin Aspart (Novolog Flexpen) 0 units SC ACHS GINNY Stop: 08/12/19 21:29 Last Admin: 07/13/19 22:13 Dose: 4 units Documented by: [id number] Cosigned by: [id number] Insulin Glargine (Lantus Solostar Pen) 8 units SC BID GINNY Stop: 08/12/19 21:29 Last Admin: 07/13/19 22:11 Dose: 8 units Documented by: [id number] Cosigned by: [id number] Ioversol (Optiray 320 100ml) 94 ml IV ONCE PRN PRN Reason: Interaction Checking Stop: 07/17/19 17:54 Last Admin: 07/13/19 17:55 Dose: 94 ml Documented by: [id number] Discontinued Medications Sodium Chloride (Nss 1000ml) 1,000 mls @ 999 mls/hr IV .Q1H1M GINNY Stop: 07/13/19 18:00 Last Infusion: 07/13/19 18:13 Dose: 0 mls/hr Documented by: [id number] Admin: 07/13/19 17:11 Dose: 999 mls/hr Documented by: [id number] Ampicillin Sodium/Sulbactam Sodium 3,000 mg/ Sodium Chloride 108 mls @ 200 mls/hr IV NOW STA; Protocol Stop: 07/13/19 18:58 Last Infusion: 07/13/19 19:21 Dose: 0 mls/hr Documented by: [id number] Admin: 07/13/19 18:46 Dose: 200 mls/hr Documented by: [id number] Daptomycin 550 mg/ Syringe 11 mls @ 5.5 mls/min IV TODAY@1900 ONE; Protocol Stop: 07/13/19 19:01 Last Admin: 07/13/19 19:21 Dose: 5.5 mls/min Documented by: [id number] Piperacillin Sod/Tazobactam (Sod 4.5 gm/ Dextrose) 120 mls @ 240 mls/hr IV ONE ONE; Protocol Stop: 07/13/19 21:59 Last Infusion: 07/13/19 23:30 Dose: 0 mls/hr Documented by: [id number] Admin: 07/13/19 22:05 Dose: 240 mls/hr Documented by: [id number] Lidocaine/Epinephrine (Buffered Xylocaine/Epinephrine 1%) 20 ml INFIL NOW ONE Stop: 07/13/19 16:58 Last Admin: 07/13/19 17:09 Dose: 20 ml Documented by: [id number] Discharge Plan Visit Data *Final* Discharge Date/Time: 07/13/19 20:23 Chief Complaint: Wound Stated Complaint: LUMP ON LEFT SIDE OF HEAD ED Provider: Roger Robledo ED Midlevel Provider: Yuly Cespedes Discharge Problem: Cellulitis of face, Diabetes mellitus, type 2 Patient Disposition: Admitted As Inpatient Condition: Good Discharge Instructions Interventions: ED Discharge Assessment Last Done: 07/13/19 20:23
[2019-07-13 17:24] LABS: Hematocrit (blood only) 40.6 % (37-47); Hemoglobin 13.8 g/dL (12.0-16.0); Mean Corpuscular Hemoglobin 29.3 pg (25-34); Mean Corpuscular Volume 86.2 fL (80-100); Mean Platelet Volume 9.2 fL (7.4-10.4); Platelet Count 360 K/uL (130-400); RDW Coefficient of Variation 13.4 % (11.5-14.5); Red Blood Count 4.71 M/uL (4.2-5.4); White Blood Count 10.62 K/uL (4.8-10.8)
[2019-07-13 17:46] LABS: Albumin Globulin Ratio 0.5 (0.9-2); BUN Creatinine Ratio 13.3 (10-20); Bilirubin,Total 0.6 mg/dl (0.2-1); Calcium 8.7 mg/dl (8.5-10.1); Creatinine Clr Calc Pharmacy 85.2 ml/min; Est GFR (African American) 64.9; Globulin 5.5 gm/dl (2.5-4.0); Potassium 3.8 mmol/L (3.5-5.1); Total Protein 8.5 gm/dl (6.4-8.2)
[2019-07-13] MEDS ORDERED: IOVERSOL 100ml IV PRN (17:55)
[2019-07-13 18:01] LABS: Beta-Hydroxybutyrate 3.84 mg/dl (0.2-2.81)
--- NOTE | 2019-07-13 18:08 | CT Scan Report ---
CT head/brain wo/w con CLINICAL HISTORY: 48 years-old Female presenting with left temporal abscess/cellulitis. TECHNIQUE: Multidetector CT imaging of the head was performed before and after the administration of intravenous contrast. IV contrast: 94 mL of Optiray 320. One or more dose lowering techniques were us ed consistent with the principles of ALARA (as low as reasonably achievable), including automatic exp osure control, mA or kV adjustment to individual patient size, and/or use of iterative reconstruction . COMPARISON: 10/03/2017. CT DOSE (mGy.cm): The estimated cumulative dose is 1074.96 mGy.cm. FINDINGS: Supervisor Cell Room topogram: Unremarkable. Ventricles and sulci normal in size. No hemorrhage. Brain parenchyma normal in appearance with preser dipesh glasgow-white differentiation. No acute territorial infarct. No mass effect or midline shift. No ext ra-axial fluid collection. Paranasal sinuses and mastoid air cells clear. Calvarium intact. Swelling of the left temporalis muscle with overlying infiltration and fluid density. There is partial rim enh ancement though no well-defined fluid collection. Extensive regional skin thickening and subcutaneous fat infiltration. Enlarged reactive left intraparotid lymph nodes. IMPRESSION: 1. No acute intracranial pathology. No abnormal intracranial enhancement. 2. Phlegmonous changes along the left temporalis muscle with extensive surrounding cellulitis. No recio bjacent osseous or intracranial changes. No drainable abscess at this time. This could likely be foll owed with ultrasound. ACT 112: Negative or not required by law. Electronically signed by: Néstor Obrien M.D. 07/13/2019 6:06 PM
[2019-07-13] MEDS ORDERED: AMPICILLIN/SULBACTAM SOD 3,000 MG in 0.9 % SODIUM CHLORIDE 100 ML IV STA (18:26)
[2019-07-13] MEDS ORDERED: DAPTOmycin 500 MG VIAL IV STA (18:39)
[2019-07-13] MEDS ORDERED: DAPTOmycin 550 MG in SYRINGE 0 ML IV ONE (19:00)
[2019-07-13 19:08] LABS: Basophils # (auto) 0.18 K/uL (0-0.2); Basophils % (auto) 1.7 %; Eosinophils # (auto) 0.63 K/uL (0-0.5); Eosinophils % (auto) 5.9 %; Immature Granulocytes # (auto) 0.16 K/uL (0.00-0.02); Immature Granulocytes % (auto) 1.5 %; Lymphocytes # (auto) 2.73 K/uL (1.2-3.4); Lymphocytes % (auto) 25.7 %; Monocytes # (auto) 0.96 K/uL (0.11-0.59); Neutrophils # (auto) 5.96 K/uL (1.4-6.5); Neutrophils % (auto) 56.2 %
--- NOTE | 2019-07-13 20:16 | History & Physical Report ---
Date of Service July 13, 2019 Assessment & Plan (1) Cellulitis of face: Ms. Gatica is a 48 year old female with a past medical history of ulcerative colitis, type 2 DM, hypertension and hyperlipidemia who presents to [facility] due to a 2-day history of left-sided facial swelling. ED course: 1 L normal saline bolus, 3 g IV Unasyn, 550 mg IV daptomycin Facial Cellulitis -Admit to med/surg -Head CT shows " phlegmonous changes along the left temporalis muscle with e xtensive surrounding cellulitis. No subjacent osseous or intracranial changes, no drainable abscess." -Purulent discharge was expressed from the wound in the ER, and a wound culture was collected -Blood cultures drawn and pending x2 -Given the patient is diabetic, and immunocompromised (w/Humira use), will use broad-spectrum IV antibiotics to cover for Pseudomonas and MRSA -IV Zosyn and daptomycin ordered -Consider follow-up ultrasound, if there is concern that the patient is developing an abscess -Patient is currently stable, afebrile, with a normal white cell count and a normal lactate of 1.7 -Unsure of cause of cellulitis at this time. Patient denies any injury to that area. The Pneumovax vaccine has reportedly caused cellulitis-like reactions and abscesses in the past, however this was deemed to be rare Ulcerative pancolitis -Patient is on Humira for her history of ulcerative colitis, which she states is improving her symptoms Diabetes mellitus Type 2 -Hold home metformin and glipizide -HbA1c 7.5 and /18 -Blood sugars elevated on arrival, at 360 -Will order Lantus 8 units twice daily, as well as an insulin sliding scale -BSG AC/HS Hypertension -Continue home lisinoprilhydrochlorothiazide Hyperlipidemia -Listed on patient's chart, however she does not appear to be on medications for this -Per review of the chart, her PCP Dr. Castillo has asked her to obtain a fasting lipid profile prior to her next clinic visit. We will hold off on ordering labs at this time Code status: FULL DVT prophylaxis: Low risk, SCDs and ambulation Disposition: admit to med/surg (2) Ulcerative pancolitis: (3) Diabetic peripheral neuropathy: (4) Morbid obesity: (5) Hyperlipidemia: (6) Diabetes mellitus, type 2: (7) HTN (hypertension): History of Present Illness Chief Complaint: Left sided facial swelling Primary Care Provider: Cheyanne Castillo MD Ms. Gatica is a 48 year old female with a past medical history of ulcerative colitis, type 2 DM, hypertension and hyperlipidemia who presents to [facility] due to a 2-day history of left-sided facial swelling. The patient states that she recently received her pneumonia and hepatitis B vaccines, and the following day noted that the entire left side of her face was swollen. She states that she took 2 doses of Benadryl, which improved her facial swelling, however she remained with a swelling in the left side of her scalp, above her ear. She denies any associated fever, or chills. She states that the spot over which she had the maximal swellinf "popped" last night, and she had malodorous watery discharge from it. She called her primary care provider, who recommended that she come into the ER. She states that she has no prior history of skin infections or abscesses, and has never been diagnosed with MRSA. She denies any trouble with her hearing or vision. Allergies Allergy/AdvReac Type Severity Reaction Status Date / Time adhesive Allergy Mild SKIN Verified 07/13/19 17:23 REACTION Home Medications Home Medications Medication Instructions Recorded Confirmed Type glipizide 20 mg PO QAM 02/13/19 07/13/19 History blood sugar diagnostic #10 ea 04/14/19 07/13/19 History lancets #50 ea 04/14/19 07/13/19 History metformin 500 mg tablet 500 mg PO BIDM tab 05/24/19 07/13/19 History adalimumab [Humira Pen] 40 mg SQ DIRECTED 07/13/19 07/13/19 History lisinopril-hydrochlorothiazide 1 tab PO QAM 07/13/19 07/13/19 History Past Med/Surg History Medical History (Updated 07/13/19 @ 20:23 by Khadra Bergeron MD) Diabetes mellitus, type 2 (Chronic) Diabetic peripheral neuropathy (Chronic) HTN (hypertension) (Chronic) Hyperlipidemia (Chronic) Migraine (Chronic) Morbid obesity (Chronic) Osteoarthritis (Chronic) Tubular adenoma of colon (Resolved) Ulcerative colitis (Chronic) Surgical History (Updated 05/24/19 @ 16:20 by Cheyanne Castillo MD) History of colonoscopy S/P tonsillectomy Family History (Updated 07/13/19 @ 16:14 by Brigid Villa) Other Family history not known due to adoption Social History (Updated 07/13/19 @ 16:15 by Brigid Villa) Preferred Language: Andorran Communication Ability: Effective Visual Impairment: No Limitations Hearing Ability: Normal Lead Pourer Required: No Beliefs That Will Affect Care: None marital status: Current Living Situation: Spouse current occupational status: unemployed Other Information That Helps Us Care for You: No Feels Safe at Home: Yes Safety Concerns: Feels Safe At This Time Smoking Status: Never smoker Do You Dip or Chew Tobacco: No ; Second Hand Exposure: No ; Tobacco Cessation Education Requested by Patient: No Hx Alcohol Use: No Hx Substance Use: No Childhood Exposure to Second-Hand Smoke: Yes Dental Care, Regularly: Yes Physical Activity Frequency: Does not Exercise Review of Systems Constitutional: no fever, no chills, no fatigue and no anorexia Respiratory: no cough, no dyspnea and no wheezing Cardiovascular: no chest pain, no palpitations, no syncope, no edema and no calf pain Gastrointestinal: no abdominal pain, no nausea, no vomiting and no change in bowel habits Genitourinary: no dysuria and no urinary frequency Integumentary: + new lesions Physical Exam Constitutional: WD/WN, vitals as above + well hydrated and + morbidly obese; no acute distress Eyes: PERRL, conjunctivae normal, anicteric sclerae left inferior periorbital area slightly more puffy compared to right side ENMT: external ear and nose normal, oropharynx normal Ears: no TM abnormality Left side of scalp, just above left ear w/erythema, swelling and TTP with a 2cm annular area of fluctuance. Serous drainage noted Respiratory: normal respiratory effort, lungs clear to auscultation Cardiovascular: RRR, no murmur, no edema Gastrointestinal (Abdomen): normal bowel sounds, soft, nontender, no hepatosplenomegaly Musculoskeletal: no cyanosis or clubbing, extremities motor strength 5/5 Neurologic: PERRL, EOMI, accommodation nl, no face palsy, no dysarthria Psychiatric: A+Ox3, euthymic affect Results & Data Vital Signs (Past 12 Hours) Vital Signs Temp Pulse Pulse Resp BP BP Pulse Ox 07/13/19 18:46 94 H 22 155/98 H 99 07/13/19 17:21 100 H 20 163/111 H 95 07/13/19 16:36 36.5 C 112 H 20 154/112 H 96 Code Status & VTE Plan VTE Prophylaxis Plan VTE Prophylaxis will be ordered: Yes Supervising Physician Co-Signing Physician Notes Patient seen and examined, chart reviewed, case discussed with Dr. Bergeron and agree with her assessment and plan as documented above. Briefly, patient is a 48-year-old female with history of ulcerative colitis on Humira presenting with cellulitis of the left scalp/face. Patient had her hep B vaccine as well as her pneumonia vaccine recently and subsequently developed swelling of her left face. She did note a small abscess which opened with use of warm compresses and drained purulent drainage. She has taken Benadryl with some relief. Denies systemic signs/symptoms of infectionno fever/chills/body aches/malaise. Patient states she never had swelling of her lips/tongue/oropharynx. No shortness of breath/wheeze/stridor. No abdominal pain/nausea/vomiting/diarrhea On physical exam she is afebrile, hemodynamically stable, no acute distress, nontoxic in appearance HEENTleft-sided of head with area of swelling/redness/tenderness, serous drainage present, mild swelling of left side of face. Heart+ S1/S2, regular LungsCTA anteriorly Abdomen+ bowel sounds, soft, NT/ND EXTREMITIES: No cyanosis, edema, joint tenderness or swelling. No deformity. Labs and images reviewed. WBC = 10.62, glucose = 360, beta hydroxybutyrate elevated at 3.84 CT head with soft tissue swelling/cellulitis/phlegmon. No drainable collection Assessment/[id number] female presenting with left-sided scalp cellulitis. Question if this is secondary to her recent vaccinations as there is mention of edema/redness of the face after receiving minimal wax, although a rare complication. Patient displays no systemic signs of infection We will cover with broad-spectrum antibiotics for now as patient is immunosuppressed on Humira Lantus and sliding scale, goal blood sugar 100-1 40 Remainder of plan as above Resident Activity Tracking Resident Involvement: Resident Care Provided Care Provided: Adult Hospital Medicine
[2019-07-13] MEDS ORDERED: GLUCOSE 40% GEL 15 GM TUBE PO PRN (21:02)
[2019-07-13] MEDS ORDERED: PIPERACILL/TAZOBAC CONSULT ACTIVE PRN (21:02)
[2019-07-13] MEDS ORDERED: GLUCOSE 10 TABS/TUBE PO PRN (21:02)
[2019-07-13] MEDS ORDERED: DEXTROSE 50% 50 ML SYRINGE IV PRN (21:02)
[2019-07-13] MEDS ORDERED: CARBOHYDRATES FOR HYPOGLYCEMIA PO PRN (21:02)
[2019-07-13] MEDS ORDERED: GLUCAGON FOR INJ 1 MG VIAL SQ PRN (21:02)
[2019-07-13] MEDS ORDERED: ACETAMINOPHEN 325 MG TAB PO PRN (21:02)
[2019-07-13] MEDS ORDERED: PIPERACILLIN/TAZOBACTAM 4.5 GM in DEXTROSE 5% 100 ML IV ONE (21:30)
[2019-07-13] MEDS: INSULIN GLARGINE SOLOSTAR 100 UNITS/ML 3 ML PEN SC SCH (22:11)
[2019-07-13] MEDS: INSULIN ASPART 100 UNITS/ML 3 ML PEN SC SCH (22:13)
--- NOTE | 2019-07-13 23:15 | Billing Data ---
Date of Service July 13, 2019 Coding Level of Care Code 30290 Initial Inpt Care Lvl 3
[2019-07-14] MEDS: PIPERACILLIN/TAZOBACTAM 4.5 GM in DEXTROSE 5% 100 ML IV SCH ×3 (04:17→20:31)
[2019-07-14 06:44] LABS: Estimated Average Glucose 255 mg/dl; Hemoglobin A1C 10.5 % (4.5-5.6)
[2019-07-14 06:52] LABS: Creatinine Clr Calc Pharmacy 136.8 ml/min; Est GFR (African American) 115.1; Est GFR (Non-African American) 99.3
[2019-07-14] MEDS ORDERED: PHARMACY GLYCEMIC MGMT CONSULT PRN (08:55)
[2019-07-14] MEDS: INSULIN ASPART 100 UNITS/ML 3 ML PEN SC SCH ×5 (09:02→20:48)
[2019-07-14] MEDS: INSULIN GLARGINE SOLOSTAR 100 UNITS/ML 3 ML PEN SC SCH (09:02)
[2019-07-14] MEDS ORDERED: INSULIN GLARGINE SOLOSTAR 100 UNITS/ML 3 ML PEN SC STA (09:10)
[2019-07-14] MEDS: LISINOPRIL/HCTZ 20/12.5MG 1 TAB TAB PO SCH (09:10)
[2019-07-14] MEDS ORDERED: INSULIN GLARGINE SOLOSTAR 100 UNITS/ML 3 ML PEN SC ONE (12:45)
[2019-07-14] MEDS: BACITRACIN OINT 15 GM TUBE EXT SCH ×2 (12:54→20:39)
--- NOTE | 2019-07-14 13:13 | Hospitalist Progress Note ---
Date of Service July 14, 2019 Assessment & Plan (1) Cellulitis of face: Ms. Gatica is a 48 year old female with a past medical history of ulcerative colitis, type 2 DM, hypertension and hyperlipidemia who presents to [facility] due to a 2-day history of left-sided facial swelling. ED course: 1 L normal saline bolus, 3 g IV Unasyn, 550 mg IV daptomycin Facial Cellulitis -Head CT showed " phlegmonous changes along the left temporalis muscle with extensive surrounding cellulitis. No subjacent osseous or intracranial changes, no drainable abscess." -Wound and blood cultures pending -Unsure of cause of cellulitis at this time. Patient denies any injury to that area. The Pneumovax vaccine has reportedly caused cellulitis-like reactions and abscesses in the past, however this was deemed to be rare, unlikely but on the differential. -Patient is currently stable, afebrile, with a normal white cell count. -Given the patient is diabetic, and immunocompromised (w/Humira use), will use broad-spectrum IV antibiotics to cover for Pseudomonas and MRSA -IV Zosyn and daptomycin, awaiting cultures for antibiotic narrowing. -Roughly 5mL of white-yellow purulent discharge was expressed from the lesion this AM. -Will consider follow-up ultrasound, if there is concern that the patient is developing an abscess Ulcerative pancolitis -Continue home Humira. Diabetes mellitus Type 2 -Hold home metformin and glipizide -HbA1c 7.5 and 01/10 -Pharmacy diabetic consult for insulin management. Hypertension -Continue home lisinoprilhydrochlorothiazide Hyperlipidemia -Not currently on medication, patient noted her PCP Dr. Castillo will have her draw fasting lipid profile prior to next clinic visit. FEN/GI - DM2 Code status: FULL DVT prophylaxis: Low risk, SCDs and ambulation Disposition: admit to med/surg (2) Ulcerative pancolitis: (3) Diabetic peripheral neuropathy: (4) Morbid obesity: (5) Hyperlipidemia: (6) Diabetes mellitus, type 2: (7) HTN (hypertension): Supervising Physician Co-Signing Physician Notes Resident Physician Supervision Note: I independently interviewed and examined the patient and verified the johnson history and physical, reviewed labs and image studies, discussed the case with the resident Dr. Lucio and agree with the findings and care plan. Subjective Patient seen and examined this morning at the bedside. Patient noted that she was feeling well and that she didn't notice any pain from the lesion. She did state that it has continued to drain and that it was starting to dry into her hair. She continues to deny any fever or chills, visual changes, hearing changes. Review of Systems Constitutional: no fever, no chills, no sweats, no body aches, no fatigue and no malaise Eyes: no eye pain Ear, Nose, Mouth, Throat: no ear pain, no tinnitus, no dizziness and no sore throat Respiratory: no cough and no dyspnea Cardiovascular: no chest pain, no dyspnea and no palpitations Gastrointestinal: no abdominal pain, no nausea, no vomiting and no constipation Genitourinary: no dysuria and no hematuria Musculoskeletal: no back pain Integumentary: + lesions (lesion on L side of head, draining purulent discharge) and + erythema Physical Exam Constitutional: WD/WN, vitals as above Eyes: PERRL, conjunctivae normal, anicteric sclerae ENMT: external ear and nose normal, oropharynx normal Neck: trachea midline, no thyromegaly Respiratory: normal respiratory effort, lungs clear to auscultation Cardiovascular: RRR, no murmur, no edema Gastrointestinal (Abdomen): normal bowel sounds, soft, nontender, no hepatosplenomegaly Skin: + lesion Notable lesion on L side of head, temporal area, with 5x3mm area erythema and fluctuation. Notable opening of lesion draining white-yellow purulent discharge. Psychiatric: A+Ox3, euthymic affect Results & Data Vital Signs (Past 12 Hours) Vital Signs Temp Pulse Resp BP Pulse Ox 07/14/19 07:34 36.7 C 80 20 151/85 H 92 Laboratory Results Abnormal lab results 07/13/19 07/13/19 07/13/19 Range/Units 17:13 17:13 22:03 Immature Gran # (Auto) 0.16 H (0.00-0.02) K/uL Eddy # (Auto) 0.96 H (0.11-0.59) K/uL Eos # (Auto) 0.63 H (0-0.5) K/uL POC Glucose 282 H (70-99) Hemoglobin A1c (4.5-5.6) % Beta-Hydroxybutyric Acd 3.84 H (0.2-2.81) mg/dl 07/14/19 07/14/19 07/14/19 Range/Units 05:17 08:08 11:57 Immature Gran # (Auto) (0.00-0.02) K/uL Eddy # (Auto) (0.11-0.59) K/uL Eos # (Auto) (0-0.5) K/uL POC Glucose 231 H 272 H (70-99) Hemoglobin A1c 10.5 H (4.5-5.6) % Beta-Hydroxybutyric Acd (0.2-2.81) mg/dl 07/14/19 Range/Units 16:56 Immature Gran # (Auto) (0.00-0.02) K/uL Eddy # (Auto) (0.11-0.59) K/uL Eos # (Auto) (0-0.5) K/uL POC Glucose 148 H (70-99) Hemoglobin A1c (4.5-5.6) % Beta-Hydroxybutyric Acd (0.2-2.81) mg/dl Medications Administered Current Inpatient Medications Acetaminophen (Tylenol) 650 mg PO Q4H PRN PRN Reason: pain/fever Stop: 08/12/19 21:01 Bacitracin (Bacitracin) 1 appln EXT BID [facility] Stop: 08/13/19 11:59 Last Admin: 07/14/19 12:54 Dose: 1 appln Documented by: Dextrose (Dextrose 50%) 25 - 50 ml IV UD PRN; Protocol PRN Reason: Hypoglycemia Protocol Stop: 08/12/19 21:01 Glucagon (Glucagen) 1 mg SQ UD PRN; Protocol PRN Reason: Hypoglycemia Protocol Stop: 08/12/19 21:01 Glucose (Dex4 Glucose) 4 - 8 tabs PO UD PRN; Protocol PRN Reason: Hypoglycemia Protocol Stop: 08/12/19 21:01 Glucose (Glucose 40%) 15 - 30 gm PO UD PRN; Protocol PRN Reason: Hypoglycemia Protocol Stop: 08/12/19 21:01 Lisinopril/HCTZ (Prinzide 20/12.5mg) 1 tab PO QAM [facility] Stop: 08/13/19 08:59 Last Admin: 07/14/19 09:10 Dose: 1 tab Documented by: Piperacillin Sod/Tazobactam (Sod 4.5 gm/ Dextrose) 120 mls @ 28.75 mls/hr IV Q8H GINNY; Protocol Stop: 07/24/19 03:59 Last Admin: 07/14/19 12:57 Dose: 28.8 mls/hr Documented by: Daptomycin 375 mg/ Syringe 7.5 mls @ 3.75 mls/min IV Q24H GINNY; Protocol Stop: 07/24/19 19:59 Insulin Aspart (Novolog Flexpen) 0 units SC ACHS GINNY Stop: 08/12/19 21:29 Last Admin: 07/14/19 12:47 Dose: 27 units Documented by: Insulin Aspart (Novolog Flexpen) 0 units SC 0000,0400 GINNY Stop: 07/15/19 08:00 Insulin Glargine (Lantus Solostar Pen) 0 units SC HS GINNY; Protocol Stop: 07/14/19 23:59 Ioversol (Optiray 320 100ml) 94 ml IV ONCE PRN PRN Reason: Interaction Checking Stop: 07/17/19 17:54 Last Admin: 07/13/19 17:55 Dose: 94 ml Documented by: Miscellaneous (Carbohydrates For Hypoglycemia) 15 - 30 gm PO UD PRN PRN Reason: Hypoglycemia Protocol Stop: 08/12/19 21:01 Miscellaneous Information (Consult) 1 ea N/A UD PRN PRN Reason: Consult Stop: 08/12/19 21:01 Miscellaneous Information (Consult Glycemic Management Pharmacy) 1 ea N/A UD PRN PRN Reason: Consult Stop: 08/13/19 08:54 Resident Activity Tracking Resident Involvement: Resident Care Provided Care Provided: Adult Hospital Medicine (1) Diabetes mellitus, type 2 Diabetes mellitus fpc insulin use: without fpc use
--- NOTE | 2019-07-14 15:49 | Pharmacy Report ---
Glycemic Control Consultation - Date of Service July 14, 2019 - Scope Scope: Glycemic Pharmacist consulted by Dr Lucio on 07/14/19 for glycemic control and to write orders per [facility] inpatient glycemic control protocol - Objective Weight: 143 kg Accuchecks BSG (last 24hrs): 07/13/19 07/13/19 07/14/19 17:13 22:03 08:08 Glucose 360 H* POC Glucose 282 H 231 H 07/14/19 11:57 Glucose POC Glucose 272 H Laboratory Data (last 24hrs): 07/13/19 07/14/19 17:13 05:17 Potassium 3.8 Carbon Dioxide 24 Anion Gap 6.0 Creatinine 1.14 0.71 D Est Cr Clr Drug Dosing 85.2 136.8 Beta-Hydroxybutyric Acd 3.84 H HbA1c: Hemoglobin A1c 10.5 % (4.5-5.6) H 07/14/19 05:17 - Recent Pertinent Medications Outpatient Anti-diabetic Regimen: * Metformin 500 mg BID * Glipizide ER 20 mg QAM * A1c = 10.5% on 07/14/19 Risk Factors for Insulin Resistance: * Infection: on Zosyn * Diet: T2DM - Assessment & Plan Assessment & Plan: ASSESSMENT: * 48 y/o F admitted for facial cellulitis requiring IV antibiotics. Patient has Type 2 Diabetes managed at home with only oral meds - Metformin and Glipizide. * Oral agents are not recommended for inpatient use d/t drug interactions, changing PO intake, and difficulty titrating for acute hyper/hypoglycemia. ADA recommends re-initiating outpatient oral agents 1-2 days prior to discharge if/when appropriate if they were held on admission. * Will hold oral agents for admission and utilize SQ basal bolus insulin regimen which is the recommended regimen for inpatient glycemic control. Will initiate weight based insulin dosing for insulin dayanara patient and titrate based on BSG trends. * Patient was started on Novolog last night with CF and CR based on wt and stress factor of 1. Lantus 8 units given at HS yesterday. * Fasting and lunch BSGs today were above 200. Lantus and Novolog dosing parameters increased using wt and stress factor 3 on the insulin calculator. PLAN FOR INPATIENT GLYCEMIC CONTROL: * Holding outpatient oral diabetes medications * Basal insulin: increased * Lantus 36 units total SQ today afternoon * HS Lantus based on scale as follows: - for BSG 200 or less = give 24 units - for BSG above 200 = give 36 units * Bolus insulin: tightened * NovoLog per scale ACHS or Q6hrs while NPO. Added 00 and 04 checks. * Goal Range: Low 120 mg/dL - High 150 mg/dL * Correction Factor: 10 mg/dL/unit * Nutritional / Prandial insulin per carb ratio of 1 unit per 4 grams CHO consumed * Please note that the plan above was derived based on current level of insulin resistance and hospital stress. These recommendations are appropriate for inpatient admission only. Plan of care upon discharge will need to be reassessed to avoid potential outpatient hypo/hyperglycemia. Thank you.
[2019-07-14] MEDS: DAPTOmycin 375 MG in SYRINGE 0 ML IV SCH (20:31)
[2019-07-14] MEDS ORDERED: INSULIN GLARGINE SOLOSTAR 100 UNITS/ML 3 ML PEN SC SCH (21:00)
[2019-07-15] MEDS: INSULIN ASPART 100 UNITS/ML 3 ML PEN SC SCH ×6 (00:29→20:18)
[2019-07-15] MEDS: PIPERACILLIN/TAZOBACTAM 4.5 GM in DEXTROSE 5% 100 ML IV SCH (04:13)
[2019-07-15 06:06] LABS: Hematocrit (blood only) 38.7 % (37-47); Mean Corpuscular Hemoglobin 29.2 pg (25-34); Mean Corpuscular Hgb Conc 33.6 g/dL (32-36); Mean Platelet Volume 8.9 fL (7.4-10.4); Platelet Count 339 K/uL (130-400); RDW Coefficient of Variation 13.4 % (11.5-14.5); RDW Standard Deviation 42.5 fL (36.4-46.3); Red Blood Count 4.45 M/uL (4.2-5.4); White Blood Count 10.15 K/uL (4.8-10.8)
[2019-07-15 06:31] LABS: Basophils # (auto) 0.11 K/uL (0-0.2); Basophils % (auto) 1.1 %; Eosinophils # (auto) 0.66 K/uL (0-0.5); Eosinophils % (auto) 6.5 %; Immature Granulocytes # (auto) 0.22 K/uL (0.00-0.02); Immature Granulocytes % (auto) 2.2 %; Lymphocytes # (auto) 3.42 K/uL (1.2-3.4); Lymphocytes % (auto) 33.7 %; Monocytes # (auto) 0.95 K/uL (0.11-0.59); Monocytes % (auto) 9.4 %; Neutrophils # (auto) 4.79 K/uL (1.4-6.5); Neutrophils % (auto) 47.1 %; RBC Morphology Unremarkable
[2019-07-15 06:39] LABS: Creatinine Clr Calc Pharmacy 115.6 ml/min; Est GFR (African American) 93.9
[2019-07-15] MEDS: INSULIN GLARGINE SOLOSTAR 100 UNITS/ML 3 ML PEN SC SCH ×3 (07:25→20:18)
[2019-07-15] MEDS: BACITRACIN OINT 15 GM TUBE EXT SCH ×2 (08:28→20:12)
[2019-07-15] MEDS: LISINOPRIL/HCTZ 20/12.5MG 1 TAB TAB PO SCH (08:28)
--- NOTE | 2019-07-15 10:10 | Hospitalist Progress Note ---
Date of Service July 15, 2019 Assessment & Plan (1) Infected sebaceous cyst of skin: Ms. Gatica is a 48 year old female with a past medical history of ulcerative colitis, type 2 DM, hypertension and hyperlipidemia who presents to [facility] due to a 2-day history of left-sided facial swelling. ED course: 1 L normal saline bolus, 3 g IV Unasyn, 550 mg IV daptomycin Facial Cellulitis -Head CT showed " phlegmonous changes along the left temporalis muscle with extensive surrounding cellulitis. No subjacent osseous or intracranial changes, no drainable abscess." -Blood cultures showed no growth at 24 hours. -Wound cultures grew Staph Aureus and Group B Beta Strep, awaiting sensitivities -Patient continues to be stable, afebrile, with a normal white cell count. -Given the patient is diabetic, and immunocompromised (w/Humira use), patient was initially started on broad-spectrum IV antibiotics to cover for Pseudomonas and MRSA with Zosyn and Daptomycin -Due to growth of Staph and Group B Beta Strep, Continue Daptomycin and DC Zosyn while awaiting sensitivities -Roughly 10mL of white-yellow purulent discharge was expressed from the lesion this AM along with a fibrotic white tissue like material, followed by blood tinged discharge. Patient tolerated well and denied any pain. -Consider discharge tomorrow on oral Augmentin if patient continues to do well. Ulcerative pancolitis -Continue home Humira. Diabetes mellitus Type 2 -Hold home metformin and glipizide -HbA1c 7.5 and 01/10 -Pharmacy diabetic consult for insulin management. Hypertension -Continue home lisinoprilhydrochlorothiazide Hyperlipidemia -Not currently on medication, patient noted her PCP Dr. Castillo will have her draw fasting lipid profile prior to next clinic visit. FEN/GI - DM2 Code status: FULL DVT prophylaxis: Low risk, SCDs and ambulation Disposition: med/surg (2) Cellulitis of face: (3) Ulcerative pancolitis: (4) Diabetic peripheral neuropathy: (5) Morbid obesity: (6) Hyperlipidemia: (7) Diabetes mellitus, type 2: (8) HTN (hypertension): Supervising Physician Co-Signing Physician Notes Resident Physician Supervision Note: I independently interviewed and examined the patient and verified the johnson history and physical, reviewed labs and image studies, discussed the case with the resident Dr. Lucio and agree with the findings and care plan. Subjective Patient seen and examined at the bedside this AM. Patient states that she feels well and that she had no acute incidents overnight. Still notes occasional drainage from the lesion. No other concerns at this time. Review of Systems Constitutional: no fever, no chills, no body aches and no fatigue Eyes: no eye pain Ear, Nose, Mouth, Throat: no ear pain and no dizziness Respiratory: no cough and no dyspnea Cardiovascular: no chest pain, no dyspnea and no dyspnea on exertion Gastrointestinal: no abdominal pain, no nausea and no vomiting Genitourinary: no dysuria Integumentary: + lesions (lesion on L side of head, draining purulent discharge, less than before) Physical Exam Constitutional: WD/WN, vitals as above Eyes: PERRL, conjunctivae normal, anicteric sclerae ENMT: external ear and nose normal, oropharynx normal Neck: trachea midline, no thyromegaly Respiratory: normal respiratory effort, lungs clear to auscultation Cardiovascular: RRR, no murmur, no edema Gastrointestinal (Abdomen): normal bowel sounds, soft, nontender, no hepatosplenomegaly Skin: + lesion 5x2.5cm Erythematous lesion with central opening draining white/yellow purulent discharge near the L temporal region of the scalp with fluctuance. Improved since yesterday. Psychiatric: A+Ox3, euthymic affect Results & Data Vital Signs (Past 12 Hours) Vital Signs Temp Pulse Resp BP BP Pulse Ox 07/15/19 07:22 36.6 C 79 18 138/83 95 07/14/19 23:57 36.8 C 85 20 145/84 H 94 Laboratory Results Abnormal lab results 07/14/19 07/14/19 07/14/19 Range/Units 11:57 16:56 20:44 Immature Gran # (Auto) (0.00-0.02) K/uL Lymph # (Auto) (1.2-3.4) K/uL [place] # (Auto) (0.11-0.59) K/uL Eos # (Auto) (0-0.5) K/uL POC Glucose 272 H 148 H 209 H (70-99) 07/15/19 07/15/19 07/15/19 Range/Units 00:20 04:08 05:21 Immature Gran # (Auto) 0.22 H (0.00-0.02) K/uL Lymph # (Auto) 3.42 H (1.2-3.4) K/uL [place] # (Auto) 0.95 H (0.11-0.59) K/uL Eos # (Auto) 0.66 H (0-0.5) K/uL POC Glucose 202 H 160 H (70-99) 07/15/19 Range/Units 08:06 Immature Gran # (Auto) (0.00-0.02) K/uL Lymph # (Auto) (1.2-3.4) K/uL [place] # (Auto) (0.11-0.59) K/uL Eos # (Auto) (0-0.5) K/uL POC Glucose 183 H (70-99) Medications Administered Current Inpatient Medications Acetaminophen (Tylenol) 650 mg PO Q4H PRN PRN Reason: pain/fever Stop: 08/12/19 21:01 Bacitracin (Bacitracin) 1 appln EXT BID GINNY Stop: 08/13/19 11:59 Last Admin: 07/15/19 08:28 Dose: 1 appln Documented by: Dextrose (Dextrose 50%) 25 - 50 ml IV UD PRN; Protocol PRN Reason: Hypoglycemia Protocol Stop: 08/12/19 21:01 Glucagon (Glucagen) 1 mg SQ UD PRN; Protocol PRN Reason: Hypoglycemia Protocol Stop: 08/12/19 21:01 Glucose (Dex4 Glucose) 4 - 8 tabs PO UD PRN; Protocol PRN Reason: Hypoglycemia Protocol Stop: 08/12/19 21:01 Glucose (Glucose 40%) 15 - 30 gm PO UD PRN; Protocol PRN Reason: Hypoglycemia Protocol Stop: 08/12/19 21:01 Lisinopril/HCTZ (Prinzide 20/12.5mg) 1 tab PO QAM GINNY Stop: 08/13/19 08:59 Last Admin: 07/15/19 08:28 Dose: 1 tab Documented by: Piperacillin Sod/Tazobactam (Sod 4.5 gm/ Dextrose) 120 mls @ 28.75 mls/hr IV Q8H GINNY; Protocol Stop: 07/24/19 03:59 Last Infusion: 07/15/19 08:34 Dose: Infused Documented by: Daptomycin 375 mg/ Syringe 7.5 mls @ 3.75 mls/min IV Q24H GINNY; Protocol Stop: 07/24/19 19:59 Last Admin: 07/14/19 20:31 Dose: 3.75 mls/min Documented by: Insulin Aspart (Novolog Flexpen) 0 units SC ACHS GINNY Stop: 08/12/19 21:29 Last Admin: 07/15/19 08:32 Dose: 4 units Documented by: Insulin Glargine (Lantus Solostar Pen) 36 units SC BID GINNY Stop: 08/14/19 08:59 Last Admin: 07/15/19 08:29 Dose: 36 units Documented by: Ioversol (Optiray 320 100ml) 94 ml IV ONCE PRN PRN Reason: Interaction Checking Stop: 07/17/19 17:54 Last Admin: 07/13/19 17:55 Dose: 94 ml Documented by: Miscellaneous (Carbohydrates For Hypoglycemia) 15 - 30 gm PO UD PRN PRN Reason: Hypoglycemia Protocol Stop: 08/12/19 21:01 Miscellaneous Information (Consult) 1 ea N/A UD PRN PRN Reason: Consult Stop: 08/12/19 21:01 Miscellaneous Information (Consult Glycemic Management Pharmacy) 1 ea N/A UD PRN PRN Reason: Consult Stop: 08/13/19 08:54 Resident Activity Tracking Resident Involvement: Resident Care Provided Care Provided: Adult Hospital Medicine (1) Diabetes mellitus, type 2 Diabetes mellitus director long term care insulin use: without director long term care use
--- NOTE | 2019-07-15 14:12 | Pharmacy Report ---
Glycemic Control Progress Note - Date of Service July 15, 2019 - Scope Glycemic Pharmacist consulted for glycemic control to write orders per formerly [facility] inpatient glycemic control protocol. - Objective Accuchecks BSG(last 24 hours):: 07/14/19 07/14/19 07/15/19 16:56 20:44 00:20 POC Glucose 148 H 209 H 202 H 07/15/19 07/15/19 07/15/19 04:08 08:06 12:03 POC Glucose 160 H 183 H 345 H* 07/15/19 12:05 POC Glucose 348 H* HbA1c:: Hemoglobin A1c 10.5 % (4.5-5.6) H 07/14/19 05:17 - Recent Pertinent Medications The patient is currently receiving: * Basal insulin: Lantus 36 units every 12 hours * Correctional Insulin: Novolog Correction per scale ACHS Goal Range: Low 120 mg/dL - High 150 mg/dL Correction Factor: 15 mg/dL/unit * Prandial insulin: Per carb ratio of 1 unit per 5 grams CHO consumed - Outpatient Anti-Diabetic Meds metformin 500 mg BID + glipizide ER 20 mg daily - Assessment & Plan ASSESSMENT: * See progress note from 07/14/19 for more background info, in short: * Pt receiving SQ basal bolus insulin regimen for hyperglycemia secondary to baseline DM (outpatient regimen on hold) and infection on Cubicin. * Patient is currently receiving an average of 131 units of insulin per day * 72 units of basal insulin * 59 units of prandial/correctional insulin * BSGs ranging 148 - 272 mg/dl over the past 24hrs * Changes needed to insulin regimen: * AM Fasting BSG = 183 mg/dl. This is slightly above goal range for patient based on inpatient targets and co-morbidities. Basal insulin will be continued for now at 36 units twice daily. This is weight-based stress of 3. Caution with increasing aggressively at this point since just started yesterday. * Post-prandial BSGs are trending downwards. Carbohydrate ratio was accidently changed to 54 rather than 4 so lunch blood sugar extremely high. Order corrected. * Total daily dose = >100 units. PLAN FOR INPATIENT GLYCEMIC CONTROL: * Continuing Lantus 36 units SQ BID * Continuing correction factor of 15 mg/dl/unit * Continuing carb ratio of 1 unit per 4 grams CHO consumed * Continuing goal range of Low 120 mg/dL - High 150 mg/dL * Please note that the plan above was derived based on current level of insulin resistance and hospital stress. These recommendations are appropriate for inpatient admission only. Plan of care upon discharge will need to be reassessed to avoid potential outpatient hypo/hyperglycemia. Thank you.
[2019-07-15] MEDS: DAPTOmycin 375 MG in SYRINGE 0 ML IV SCH (20:14)
[2019-07-16 06:34] LABS: Creatinine Clr Calc Pharmacy 115.6 ml/min; Est GFR (African American) 93.9
[2019-07-16 07:35] VITALS: BP 114/77; PULSE 88; TEMP 97.5; O2SAT 91
[2019-07-16] MEDS: INSULIN GLARGINE SOLOSTAR 100 UNITS/ML 3 ML PEN SC SCH (08:45)
[2019-07-16] MEDS: BACITRACIN OINT 15 GM TUBE EXT SCH (08:45)
[2019-07-16] MEDS: INSULIN ASPART 100 UNITS/ML 3 ML PEN SC SCH (08:46)
[2019-07-16] MEDS: LISINOPRIL/HCTZ 20/12.5MG 1 TAB TAB PO SCH (08:46)
--- NOTE | 2019-07-16 10:52 | Discharge Summary ---
Date of Service July 16, 2019 Admission HPI Per Admitting Provider Ms. Gatica is a 48 year old female with a past medical history of ulcerative colitis, type 2 DM, hypertension and hyperlipidemia who presents to [facility] due to a 2-day history of left-sided facial swelling. The patient states that she recently received her pneumonia and hepatitis B vaccines, and the following day noted that the entire left side of her face was swollen. She states that she took 2 doses of Benadryl, which improved her facial swelling, however she remained with a swelling in the left side of her scalp, above her ear. She denies any associated fever, or chills. She states that the spot over which she had the maximal swellinf "popped" last night, and she had malodorous watery discharge from it. She called her primary care provider, who recommended that she come into the ER. She states that she has no prior history of skin infections or abscesses, and has never been diagnosed with MRSA. She denies any trouble with her hearing or vision. Admission Exam Per Admitting Provider Constitutional: WD/WN, vitals as above + well hydrated and + morbidly obese; no acute distress Eyes: PERRL, conjunctivae normal, anicteric sclerae left inferior periorbital area slightly more puffy compared to right side ENMT: external ear and nose normal, oropharynx normal Ears: no TM abnormality Left side of scalp, just above left ear w/erythema, swelling and TTP with a 2cm annular area of fluctuance. Serous drainage noted Respiratory: normal respiratory effort, lungs clear to auscultation Cardiovascular: RRR, no murmur, no edema Gastrointestinal (Abdomen): normal bowel sounds, soft, nontender, no hepatosplenomegaly Musculoskeletal: no cyanosis or clubbing, extremities motor strength 5/5 Neurologic: PERRL, EOMI, accommodation nl, no face palsy, no dysarthria Psychiatric: A+Ox3, euthymic affect Principal Diagnosis Facial cellulitis and infected sebaceous cyst Discharge Exam Constitutional WD/WN, vitals as above Eyes PERRL, conjunctivae normal, anicteric sclerae ENMT external ear and nose normal, oropharynx normal Neck trachea midline, no thyromegaly Respiratory normal respiratory effort, lungs clear to auscultation Cardiovascular RRR, no murmur, no edema Gastrointestinal (Abdomen) normal bowel sounds, soft, nontender, no hepatosplenomegaly Skin + lesion Lesion on L side of temporal region appears lessened in size and erythema. Fluctulence still noted, however, no longer draining purulent material. Psychiatric A+Ox3, euthymic affect Discharge Data Allergies Allergy/AdvReac Type Severity Reaction Status Date / Time adhesive Allergy Mild SKIN Verified 07/13/19 17:23 REACTION Consultations 07/13/19 19:17 ED Decision to Admit Stat Ordered Studies 07/13/19 17:05 CT head/brain wo/w con Stat Hospital Course (1) Infected sebaceous cyst of skin: Ms. Gatica is a 48 year old female with a past medical history of ulcerative colitis, type 2 DM, hypertension and hyperlipidemia who presents to [facility] due to a 2-day history of left-sided facial swelling. ED course: 1 L normal saline bolus, 3 g IV Unasyn, 550 mg IV daptomycin Facial Cellulitis -Head CT showed " phlegmonous changes along the left temporalis muscle with extensive surrounding cellulitis. No subjacent osseous or intracranial changes, no drainable abscess." -Blood cultures showed no growth at 24 hours. -Wound cultures grew Staph Aureus and Group B Beta Strep. -Patient continued to be stable, afebrile, with a normal white cell count throughout stay. -Given the patient is diabetic, and immunocompromised (w/Humira use), patient was initially started on broad-spectrum IV antibiotics to cover for Pseudomonas and MRSA with Zosyn and Daptomycin -Due to growth of Staph and Group B Beta Strep, Zosyn was discontinued and only IV Daptomycin was left for patients antibiotic regiment. -Throughout patients stay, roughly a total of 15mL of white-yellow purulent discharge was expressed from the lesion along with a fibrotic white tissue like material, followed by blood tinged discharge. Patient tolerated well and denied any pain while the discharge was expressed. -Due to patient's stable status and return of bacterial sensitivities allowing for directed antibiotic treatment, patient was discharged home on Oral Augmentin 875 BID x 14 days and IV Daptomycin was discontinued. Ulcerative pancolitis -Continued home Humira. Diabetes mellitus Type 2 -Held home metformin and glipizide while inpatient, to be resumed after discharg e. -Patient's sugars were managed with Insulin Aspart and Glargine while inpatient through Pharmacy Consult. -HbA1c 7.5 and 01/10 Hypertension -Continued home lisinoprilhydrochlorothiazide Hyperlipidemia -Not currently on medication, patient noted her PCP Dr. Castillo will have her draw fasting lipid profile prior to next clinic visit. FEN/GI - DM2 Code status: FULL DVT prophylaxis: Low risk, SCDs and ambulation while inpatient. Disposition: Home (2) Cellulitis of face: Ms. Gatica is a 48 year old female with a past medical history of ulcerative colitis, type 2 DM, hypertension and hyperlipidemia who presents to [facility] due to a 2-day history of left-sided facial swelling. ED course: 1 L normal saline bolus, 3 g IV Unasyn, 550 mg IV daptomycin Facial Cellulitis -Head CT showed " phlegmonous changes along the left temporalis muscle with extensive surrounding cellulitis. No subjacent osseous or intracranial changes, no drainable abscess." -Wound and blood cultures pending -Given the patient is diabetic, and immunocompromised (w/Humira use), will use broad-spectrum IV antibiotics to cover for Pseudomonas and MRSA -IV Zosyn and daptomycin, awaiting cultures for antibiotic narrowing. -Will consider follow-up ultrasound, if there is concern that the patient is d eveloping an abscess -Patient is currently stable, afebrile, with a normal white cell count. -Unsure of cause of cellulitis at this time. Patient denies any injury to that area. The Pneumovax vaccine has reportedly caused cellulitis-like reactions and abscesses in the past, however this was deemed to be rare, unlikely but on the differential. -Roughly 5mL of white-yellow purulent discharge was expressed from the lesion this AM. Ulcerative pancolitis -Continue home Humira. Diabetes mellitus Type 2 -Hold home metformin and glipizide -HbA1c 7.5 and 01/10 -Pharmacy diabetic consult for insulin management. Hypertension -Continue home lisinoprilhydrochlorothiazide Hyperlipidemia -Not currently on medication, patient noted her PCP Dr. Castillo will have her draw fasting lipid profile prior to next clinic visit. FEN/GI - DM2 Code status: FULL DVT prophylaxis: Low risk, SCDs and ambulation Disposition: admit to med/surg (3) Ulcerative pancolitis: (4) Diabetic peripheral neuropathy: (5) Morbid obesity: (6) Hyperlipidemia: (7) Diabetes mellitus, type 2: (8) HTN (hypertension): Total Time Total Time Spent Total Time Spent (In Minutes): see attending attestation Discharge Plan Discharge Items Patient Disposition: Home - Self-Care Reason For Visit: LEFT FACE CELLULITIS Discharge Diagnosis: Infected Sebaceous Cyst of skin and Cellulitis of Face Condition on Discharge: Good Activity: Per Instructions section Non-emergency contact: Primary Care Provider Call non-emergency contact if: you have any medication questions and your symptoms worsen Follow-up/Referrals: Cheyanne Castillo MD [Primary Care Provider] - 07/21/19 2:00 pm (Please, follow up with Dr. Castillo on WednesdayJuly 21 at 2:00 pm. *If you need to change this appointment, call the office at [phone].) Diet: Carb Consistent or DM2 Addtl Attending Provider Instructions: Ms. Gatica, You were seen from 07/13/19 - 07/16/19 at [facility] for concern of swelling and discharge from a lesion on your L face/scalp. In the ED, this lesion was excised and a significant amount of purulent discharge was expressed. You were admitted into the hospital for continued treatment with IV antibiotics. Purulent discharge was continually expressed from your lesion which showed improvement both in size and amount of discharge. You are being discharged today due to improvement of your symptoms and significant improvement of the lesion. Please do the following: -Follow up with your PCP within the next 1-2 weeks to determine resolution. -Take your antibiotic Augmentin 875mg twice a day for the next 14 days. -If your symptoms do not resolve or worsen, please contact your PCP or return to the ED for evaluation. Pending Studies at Discharge: No Stand-Alone Forms: My [facility], Smoking Cessation Medications and DC Order Prescriptions: New amoxicillin-pot clavulanate 875-125 mg tablet 1 tab PO Q12H 14 Days Qty: 28 RF: 0 Continued (DME) lancets [Accu-Chek Fastclix Lancet Drum] misc See Dose Instructions .ROUTE .MEDSUPPLY Qty: 50 RF: 0 (DME) Accu-Chek SmartView Test Strip strip See Dose Instructions .ROUTE .MEDSUPPLY Qty: 10 RF: 0 metformin 500 mg tablet 500 mg PO BIDM RF: 0 mesalamine [Lialda] 1.2 gram tablet,delayed release (DR/EC) 2.4 gm PO BID RF: 0 glipizide 10 mg Tablet Extended Release 24hr 20 mg PO QAM RF: 0 lisinopril-hydrochlorothiazide 20-12.5 mg tablet 1 tab PO QAM RF: 0 Humira Pen 40 mg/0.4 mL pen injector kit 40 mg SQ DIRECTED RF: 0 Discharge Orders: Discharge Order (Routine); Ordered 07/16/19 Ordered By: Jose Campos/Other Patient Handouts: Hyperglycemia, Hypoglycemia, Diabetes Resources, Diabetes Healthy Meals, Diabetes Exercise Benefits, Diabetes Living Life, Diabetes Manage A1C Test Admission Data Admit Date/Time: 07/13/19 20:01 Attending Provider: Rachel Wagner Admit Provider: Khadra Bergeron Primary Care Provider: Cheyanne Castillo Other Providers: Kayla Mariee Other Interventions: Discharge Summary Assessment (RN) Last Done: 07/16/19 11:25 DC Date/Time DO NOT enter until pt leaves facility: 07/16/19 12:17 Supervising Physician Co-Signing Physician Notes Resident Physician Supervision Note: I independently interviewed and examined the patient and verified the johnson history and physical, reviewed labs and image studies, discussed the case with the resident Dr. Lucio and agree with the findings and care plan. Resident Activity Tracking Resident Involvement: Resident Care Provided Care Provided: Adult Hospital Medicine
== END 2019-07-16 12:17 | disposition home or self-care (01) | DRG 603 ==
LOC: ED 16:28 → 4W 20:01 → SUATTDRO 20:01 → 4W 20:23